=== PATIENT | female | born 1935 | race Caucasian/White ===

== ENCOUNTER 2017-04-20 15:30 | Emergency (ER) | payer MEDICARE, BC | END 2017-04-20 16:44 | disposition left against medical advice (07) | LOC: UCEAST 15:30 | DX: R21 Rash and other nonspecific skin eruption (principal); Z53.21 Procedure and treatment not carried out due to patient leaving prior to being seen by health care provider ==

== ENCOUNTER 2017-04-21 17:55 | Inpatient (IN) | payer MEDICARE, BC ==
[2017-04-21 20:11] LABS: Urine Appearance Turbid; Urine Blood 1+ (Negative); Urine Color Amber; Urine Ketones Negative (Negative); Urine Protein 1+(30 mg/dL) (Negative); Urine Specific Gravity 1.009 (1.010-1.030); Urine Urobilinogen Negative (Negative)
--- NOTE | 2017-04-21 20:28 | RAD ---
HISTORY: Weakness COMPARISONS: October 06, 2014 VIEWS: 1: frontal portable view of the chest at 8:20 PM FINDINGS: LINES AND TUBES: None. CARDIOMEDIASTINAL SILHOUETTE: The cardiac silhouette is enlarged. The cardiomediastinal silhouette is otherwise normal for portable technique. PLEURA: The costophrenic angles are sharp. No pleural abnormalities are noted. LUNG PARENCHYMA: There is a diffuse reticular pattern with indistinct pulmonary vessels. ABDOMEN: The upper abdomen is clear. There is no subphrenic gas. BONES AND SOFT TISSUES: No bone or soft tissue abnormalities are noted. IMPRESSION: CARDIOMEGALY WITH PULMONARY INTERSTITIAL EDEMA.
[2017-04-21 20:36] LABS: EGFR Non-African American 44.6 (>60)
[2017-04-21 20:48] LABS: ABS Basophils 0 10^3/ul (0-0.2); ABS Eosinophils 0 10^3/ul (0-0.6); ABS Lymphocytes 0.4 10^3/ul (1.0-4.8); ABS Monocytes 0.5 10^3/ul (0-0.8); ABS Neutrophils 4.9 10^3/ul (1.5-7.7); ABS Nucleated RBC 0 10^3/ul; Eosinophil % 0.2 % (0-6); Hematocrit 39 % (35-47); Hemoglobin 13.1 g/dl (12.0-16.0); Mean Corpuscular HGB Conc 34 g/dl (31-36); Mean Corpuscular Hemoglobin 32 pg (27-31); Mean Corpuscular Volume 96 fL (80-97); Mean Platelet Volume 10 um3 (7.4-10.4); Nucleated Red Blood Cells % 0.1; Platelet Count 81 10^3/ul (150-450); Red Blood Count 4.06 10^6/ul (4.0-5.4); Red Cell Distribution Width 15 % (10.5-15); White Blood Count 5.8 10^3/ul (3.5-10.8)
[2017-04-21] MEDS ORDERED: NS 0.9% 1000 ML* 1,000 ML IV ONE (20:57)
[2017-04-21] MEDS ORDERED: Ciprofloxacin 400MG IVPREMIX(* 400 MG/200 ML BAG IVPB ONE (20:58)
[2017-04-21] MEDS ORDERED: Albuterol 2.5 MG/3 ML NEB.SOL* (0.083%) INH PRN (23:34)
[2017-04-21] MEDS ORDERED: Ondansetron INJ* 2 MG/ML VIAL IV PRN (23:34)
[2017-04-21] MEDS ORDERED: CMCS:Melatonin (NF) 3 MG TAB PO PRN (23:34)
--- NOTE | 2017-04-21 23:36 | HP ---
H&P (Free Text) History and Physical: PCP: Carolina Borges MD Date/Time: 04/21/2017 0027 CC: generalized weakness HPI: Mrs Mcghee is a 81YO super morbidly obese female poor historian HX of DM2, CHF, moderate pulmonary HTN, mod/sev TR, HTN, hypothyroidism, asthma on 2L oxygen nightly & PRN, & EFRA compliant with CPAP reports onset of gradually progressive generalized weakness over the last 2-3 days associated with F/C, urinary urgency & frequency without dysuria, light-headedness, nausea without vomiting, & mild rolf-umbilical abdominal ache. She denies sweats, diarrhea, chest pain, SOB, palpitations, changes in bowels, bloody/black stools, or other issues. Tonight her children assisted her to the bathroom. When returning to bed her legs "gave out" and she slid down the wall. There was no head impact or LOC. EMS was called and transport [place] [facility] ED evaluation is notable for UA positive for UTI & an elevated troponin. PMedHx DM2 CHF moderate pulmonary HTN mod/sev TR HTN hypothyroidism asthma on 2L oxygen nightly & PRN EFRA compliant with CPAP super morbid obesity diverticulosis osteoporosis glaucoma gout Ambulatory Orders Nursing to reconcile. Levothyroxine Sodium [Levothroid] 112 mcg PO DAILY 11/16/11 Zafirlukast TAB* [Accolate TAB*] 20 mg PO BID 11/16/11 Acetaminophen TAB* [Tylenol TAB*] 325 mg PO Q4H PRN 10/06/14 Brimonidine P 0.1%(NF) [Alphagan P 0.1% (NF)] 1 drop BOTH EYES BID 10/06/14 Calcium Carbonate/Vitamin D3 [Calcium 600-Vit D3 800 Tablet] 1 tab PO DAILY Diclofenac 1% GEL (NF) [Voltaren 1% GEL (NF)] 2 gm TOPICAL BID PRN 10/06/14 Latanoprost 0.005% OPTH (NF) [Xalatan 0.005% OPTH*] 1 drop BOTH EYES BEDTIME Lisinopril TAB* [Prinivil TAB 5 MG*] 5 mg PO DAILY 10/06/14 Metoprolol Tartrate TAB* [Lopressor TAB*] 50 mg PO BID 10/06/14 Potassium Citrate (NF) [Urocit-K 10 (NF)] 10 meq PO DAILY 10/06/14 Torsemide TAB* [Demadex 20 MG*] 10 mg PO DAILY 10/06/14 Albuterol/Ipratropium RESP(NF) [Combivent Respimat(NF)] 1 aer IN QID 01/11/17 Allopurinol TAB* [Zyloprim 300 MG TAB*] 300 mg PO DAILY 01/11/17 Beclomethasone 80 MCG MDI(NF) [Qvar 80 MCG MDI(NF)] 2 puff INH BID 01/11/17 Cholecalciferol (Vitamin D3) [D3 2000] 1,000 unit PO DAILY 01/11/17 Cyanocobalamin (Vitamin B-12) [B12] 500 mcg PO DAILY 01/11/17 Desloratadine [Desloratadine Odt] 5 mg PO DAILY 01/11/17 EPINEPHrine [Epipen 2-Oswaldo] 0.3 mg IM ONCE PRN 01/11/17 [place] HCl 1 % OP DAILY 01/11/17 Polyethylene Glycol 3350 [Polyethylene Glycol 3350] 1 gra PO DAILY 01/11/17 diPHENhydraMINE PO* [Benadryl PO 25 MG TAB*] 25 mg PO DAILY PRN 01/11/17 Docusate Sodium [Stool Softener] 100 mg PO BID 01/25/17 Allergies prednisone Allergy (Intermediate, Verified 04/21/17 23:32) Swelling Of Face,Lips,& Throat Adhesive Tape Allergy (Mild, Verified 04/21/17 23:32) Rash And Itching [place]-Wbs-Bfa Reductase Inhibitor Allergy (Mild, Verified 04/21/17 23:32) Rash And Itching amoxicillin Adverse Reaction (Mild, Verified 04/21/17 23:32) Nausea And Vomiting citalopram Adverse Reaction (Mild, Verified 04/21/17 23:32) Jittery omalizumab Adverse Reaction (Mild, Verified 04/21/17 23:32) Jittery adhesive tape Allergy (Mild, Uncoded 04/21/17 23:32) Rash And Itching PSurgHx R TKA cholecystectomy L lumpectomy x2 (benign) SocHx: quit smoking 25 years ago w/ ~20PYHX, rare alcohol, no recreational drugs ; , lives alone; full code status FamHx: adopted, biological parents were known to be alcoholic ROS: as above, otherwise reviewed and all were negative vitals: Vital Signs Temp 37.1 C 04/21/17 22:29 Pulse 91 04/21/17 23:00 Resp 20 04/21/17 23:00 BP 114/48 04/21/17 22:30 Pulse Ox 92 04/21/17 23:00 Intake & Output 04/21/17 04/21/17 04/22/17 11:59 23:59 11:59 Intake Total 1200 Balance 1200 Weight 146.057 kg Intake: IV Fluids 1200 Constitutional: NAD, normally developed, super morbidly obese elderly white female HEENM: atraumatic; sclera/conjunctiva: anicteric/clear; hearing: mild/ moderately hard of hearing; oropharynx: clear, mucosa moist Neck: soft tissue: no nuchal rigidity; thyroid: normal Pulmonary: clear to auscultation bilaterally, good aeration, no accessory muscle use CV: RR/RR, normal S1S2, no carotid bruit, no jugular venous distention, 2+ B DP/ PT, no edema Abdominal: soft, non-distended, minimal diffuse tenderness, no rebound/guarding/ rigidity, normoactive bowel sounds, no hepatosplenomegaly or masses, no costovertebral angle tenderness Musculoskeletal: general: grossly intact w/o tenderness to palpation Integumental: scattered areas of erythematous hyperkeratosis BLE consistent with exzema vs psoriasis Psychiatric orientation: AA&O to PPS affect: calm mood: cooperative eye contact: good content: reliable, but patient clearly lacks good understanding of her medical issues responses: timely insight: poor to fair Testing: Lab Results 04/21/17 04/21/17 04/21/17 Range/Units 19:48 20:11 20:11 WBC 5.8 (3.5-10.8) 10^3/ul RBC 4.06 (4.0-5.4) 10^6/ul Hgb 13.1 (12.0-16.0) g/dl Hct 39 (35-47) % MCV 96 (80-97) fL MCH 32 H (27-31) pg MCHC 34 (31-36) g/dl RDW 15 (10.5-15) % Plt Count 81 L (150-450) 10^3/ul MPV 10 (7.4-10.4) um3 Neut % (Auto) 84.4 H (38-83) % Lymph % (Auto) 7.0 L (25-47) % [place] % (Auto) 8.2 H (0-7) % Eos % (Auto) 0.2 (0-6) % Baso % (Auto) 0.2 (0-2) % Absolute Neuts (auto) 4.9 (1.5-7.7) 10^3/ul Absolute Lymphs (auto) 0.4 L (1.0-4.8) 10^3/ul Absolute Monos (auto) 0.5 (0-0.8) 10^3/ul Absolute Eos (auto) 0 (0-0.6) 10^3/ul Absolute Basos (auto) 0 (0-0.2) 10^3/ul Absolute Nucleated RBC 0 10^3/ul Nucleated RBC % 0.1 Sodium 132 L (133-145) mmol/L Potassium 4.2 (3.5-5.0) mmol/L Chloride 98 L (101-111) mmol/L Carbon Dioxide 25 (22-32) mmol/L Anion Gap 9 (2-11) mmol/L BUN 22 (6-24) mg/dL Creatinine 1.17 H (0.51-0.95) mg/dL Est GFR ( Amer) 57.4 (>60) Est GFR (Non-Af Amer) 44.6 (>60) BUN/Creatinine Ratio 18.8 (8-20) Glucose 153 H (70-100) mg/dL Lactic Acid (0.5-2.0) mmol/L Calcium 9.4 (8.6-10.3) mg/dL Magnesium 1.7 L (1.9-2.7) mg/dL Total Bilirubin 1.20 H (0.2-1.0) mg/dL AST 24 (13-39) U/L ALT 6 L (7-52) U/L Alkaline Phosphatase 62 (34-104) U/L Troponin I 0.07 H* (<0.04) ng/mL C-Reactive Protein 64.85 H (< 5.00) mg/L Total Protein 6.6 (6.4-8.9) g/dL Albumin 3.2 (3.2-5.2) g/dL Globulin 3.4 (2-4) g/dL Albumin/Globulin Ratio 0.9 L (1-3) TSH 0.31 L (0.34-5.60) mcIU/mL Urine Color Lillie Urine Appearance Turbid Urine pH 6.0 (5-9) Ur Specific [place] 1.009 L (1.010-1.030) Urine Protein 1+(30 mg/dl) A (Negative) Urine Ketones Negative (Negative) Urine Blood 1+ A (Negative) Urine Nitrate Negative (Negative) Urine Bilirubin Negative (Negative) Urine Urobilinogen Negative (Negative) Ur Leukocyte Esterase 3+ A (Negative) Urine WBC (Auto) 3+(>20/hpf) A (Absent) Urine RBC (Auto) 3+(>10/hpf) A (Absent) Urine Bacteria 1+ A (Absent) Urine Glucose Negative (Negative) 04/21/17 Range/Units 20:11 WBC (3.5-10.8) 10^3/ul RBC (4.0-5.4) 10^6/ul Hgb (12.0-16.0) g/dl Hct (35-47) % MCV (80-97) fL MCH (27-31) pg MCHC (31-36) g/dl RDW (10.5-15) % Plt Count (150-450) 10^3/ul MPV (7.4-10.4) um3 Neut % (Auto) (38-83) % Lymph % (Auto) (25-47) % [place] % (Auto) (0-7) % Eos % (Auto) (0-6) % Baso % (Auto) (0-2) % Absolute Neuts (auto) (1.5-7.7) 10^3/ul Absolute Lymphs (auto) (1.0-4.8) 10^3/ul Absolute Monos (auto) (0-0.8) 10^3/ul Absolute Eos (auto) (0-0.6) 10^3/ul Absolute Basos (auto) (0-0.2) 10^3/ul Absolute Nucleated RBC 10^3/ul Nucleated RBC % Sodium (133-145) mmol/L Potassium (3.5-5.0) mmol/L Chloride (101-111) mmol/L Carbon Dioxide (22-32) mmol/L Anion Gap (2-11) mmol/L BUN (6-24) mg/dL Creatinine (0.51-0.95) mg/dL Est GFR ( Amer) (>60) Est GFR (Non-Af Amer) (>60) BUN/Creatinine Ratio (8-20) Glucose (70-100) mg/dL Lactic Acid 1.5 (0.5-2.0) mmol/L Calcium (8.6-10.3) mg/dL Magnesium (1.9-2.7) mg/dL Total Bilirubin (0.2-1.0) mg/dL AST (13-39) U/L ALT (7-52) U/L Alkaline Phosphatase (34-104) U/L Troponin I (<0.04) ng/mL C-Reactive Protein (< 5.00) mg/L Total Protein (6.4-8.9) g/dL Albumin (3.2-5.2) g/dL Globulin (2-4) g/dL Albumin/Globulin Ratio (1-3) TSH (0.34-5.60) mcIU/mL Urine Color Urine Appearance Urine pH (5-9) Ur Specific [place] (1.010-1.030) Urine Protein (Negative) Urine Ketones (Negative) Urine Blood (Negative) Urine Nitrate (Negative) Urine Bilirubin (Negative) Urine Urobilinogen (Negative) Ur Leukocyte Esterase (Negative) Urine WBC (Auto) (Absent) Urine RBC (Auto) (Absent) Urine Bacteria (Absent) Urine Glucose (Negative) ECG, personally reviewed: sinus rhythm rate 81 with frequent PACs followed by junctional escapes; no ischemia CXR, personally reviewed: IMPRESSION: CARDIOMEGALY WITH PULMONARY INTERSTITIAL EDEMA. Impression: 81F presenting with generalized weakness found to have a UTI and elevated troponin DIAGNOSIS & PLAN Primary UTI w/ 2nd generalized weakness : continue ciprofloxacin IV initiated in ED : IVFs, cautiously given HX of CHF & currently stable vitals : urine CX : PT evaluation : supportive care elevated troponin : suspect demand related : telemetry & trend pre-syncope : likely 2nd UTI : update ECHO : telemetry as above Secondary DM2 : update A1c : consistent carb diet : ACHS glucometry : correctional insulin HTN : review meds once reconciled asthma : continue 2L oxygen nightly & PRN : albuterol nebs PRN EFRA : continue CPAP super morbid obesity : no acute issues hypothyroidism : review meds once reconciled glaucoma : review meds once reconciled CHF : strict I&Os : daily weights : update ECHO as above gout : continue allopurinol Admission Rational: observation for initiation of ABX for UTI, pre-syncope work up, & elevated troponin DVTp: SCDs & heparin SQ Code Status: full HCP: children
[2017-04-21] MEDS ORDERED: NS 0.9% 1000 ML* 1,000 ML IV SCH (23:45)
[2017-04-22 00:24] LABS: EGFR Non-African American 44.6 (>60)
[2017-04-22 00:25] LABS: INR 1.12 (0.77-1.02)
[2017-04-22] MEDS: Acetaminophen TAB* 325 MG PO PRN ×3 (00:25→19:14)
[2017-04-22] MEDS: Heparin VIAL(*) 5000 UNITS/ML VIAL (FIVE THOUSAND) SUBCUT SCH ×2 (06:14→15:06)
[2017-04-22 06:21] LABS: EGFR Non-African American 47.4 (>60)
[2017-04-22 06:40] LABS: ABS Basophils 0 10^3/ul (0-0.2); ABS Eosinophils 0 10^3/ul (0-0.6); ABS Lymphocytes 0.9 10^3/ul (1.0-4.8); ABS Monocytes 0.7 10^3/ul (0-0.8); ABS Neutrophils 2.4 10^3/ul (1.5-7.7); ABS Nucleated RBC 0 10^3/ul; Hematocrit 37 % (35-47); Hemoglobin 12.1 g/dl (12.0-16.0); Mean Corpuscular HGB Conc 33 g/dl (31-36); Mean Corpuscular Hemoglobin 32 pg (27-31); Mean Corpuscular Volume 97 fL (80-97); Mean Platelet Volume 10 um3 (7.4-10.4); Platelet Count 71 10^3/ul (150-450); Red Blood Count 3.78 10^6/ul (4.0-5.4); Red Cell Distribution Width 15 % (10.5-15); White Blood Count 4.1 10^3/ul (3.5-10.8)
[2017-04-22 07:28] LABS: Monocytes % 15 % (0-7)
[2017-04-22] MEDS ORDERED: Magnesium Sulfate 2 GM IV* 2 GM/50 ML BAG IVPB ONE (08:36)
[2017-04-22] MEDS ORDERED: Perflutren Lipid Microsphere* 3 ML VIAL ONE (08:41)
[2017-04-22] MEDS: Insulin LISPRO* 1 UNITS UNIT SUBCUT SCH ×4 (10:09→21:28)
[2017-04-22] MEDS: Triamcinolone 0.5% OINT * 15 GM TUBE TOPICAL SCH ×2 (10:19→22:06)
[2017-04-22] MEDS: Docusate CAP* 100 MG PO SCH ×2 (10:20→22:06)
[2017-04-22] MEDS: Nystatin TOP POWDER* 15 GM BTL TOPICAL SCH ×3 (10:20→22:06)
[2017-04-22] MEDS: Ciprofloxacin IV(*) 400 MG in D5W 250 ML BAG* 160 ML IVPB SCH ×2 (10:20→22:06)
--- NOTE | 2017-04-22 11:39 | ECHO ---
Patient: BECKA BRASWELL [facility] Rec#: [id number] : 1935 Date: 04/22/2017 Age: 81y Weight: kg / NaN lbs Sex: F Room#: 452 Admit Date#: 04/21/2017 Type: Inpatient Referring: Samuel Oreilly MD Reading: Jose Fuchs MD Barbering Teacher: Shirley Nelson RN RDCS CC: Tri Borges MD Transthoracic Echocardiogram Indication: Pre-syncope, elevated troponin levels BP: 100/46 HR: 87 Rhythm: A-Fib Findings History: Super morbid obesity, DM, HTN, CHF, PHTN, moderate-severe TR, hypothyroidism, asthma, EFRA, former smoker Technical Comments: The study is technically limited due to poor acoustic windows. The study is technically limited due to patient body habitus. The study is technically limited due to the patient's smoking history. The study was technically limited due to the patient's inability to lay in the left lateral decubitus position. Completed at 1000. Left Ventricle: The left ventricular chamber size is normal. There is no left ventricular hypertrophy. Global left ventricular wall motion and contractility are within normal limits. There is normal left ventricular systolic function. The estimated ejection fraction is 60-65%. There is septal flattening of the interventricular septum consistent with right ventricular volume or pressure overload. The assessment of diastolic function is non-diagnostic. Left Atrium: The left atrium is mildly dilated. Right Ventricle: The right ventricle is mild to moderately dilated. The right ventricular global systolic function is mildly reduced. Right Atrium: The right atrium is mild to moderately dilated. Aortic Valve: The aortic valve structure is not well visualized. There is no evidence of aortic regurgitation. There is no evidence of aortic stenosis. Mitral Valve: Mild mitral annular calcification present. The mitral valve leaflets are mildly thickened. There is mild to moderate mitral regurgitation. There is no evidence of mitral stenosis. Tricuspid Valve: The tricuspid valve structure is not well visualized. There is mild to moderate tricuspid regurgitation. There is evidence of moderate to severe pulmonary hypertension. There is no tricuspid stenosis. Pulmonic Valve: The pulmonic valve structure is not well visualized. Pericardium: There is no significant pericardial effusion. A pericardial fat pad is visualized. Aorta: The ascending aorta is not well visualized. The aortic arch is not well visualized. There is no dilation of the aortic root. Pulmonary Artery: The main pulmonary artery is not well visualized. Venous: The venous system is not well visualized. The inferior vena cava is not visualized. Contrast: Definity was used to optimize study. A total of 6 ml of diluted Definity was given IV. Summary: There are no significant changes when compared to the previous study done on 08/01/10 Conclusions Global left ventricular wall motion and contractility are within normal limits. There is normal left ventricular systolic function. The estimated ejection fraction is 60-65%. There is septal flattening of the interventricular septum consistent with right ventricular volume or pressure overload. The right ventricular global systolic function is mildly reduced. There is no evidence of aortic stenosis. There is mild to moderate mitral regurgitation. There is mild to moderate tricuspid regurgitation. There is evidence of moderate to severe pulmonary hypertension. There is no significant pericardial effusion. There are no significant changes when compared to the previous study done on 08/01/10 Measurements Name Value Normal Range RVDdMajor (2D) 4.6 cm (2.2 - 4.4) RAd ISD 4CH 6 cm (3.4 - 4.9) RA (A4C)W 4.4 cm (2.9 - 4.6) IVSd (2D) 1 cm (0.6 - 1) LVPWd (2D) 1 cm (0.6 - 1) LVIDd (2D) 4.4 cm (3.6 - 5.4) Ao root diameter (2D) 2.6 cm (2.1 - 3.5) LA dimension (AP) 2D 3.9 cm (2.3 - 3.8) LAd ISD 4CH 5.6 cm (2.9 - 5.3) LA ISD 4CH W 4.6 cm (2.5 - 4.5) Name Value Normal Range LA ESV SP 4CH (A/L) 59 ml - LA ESV SP 2CH (A/L) 63 ml - LA ESV BP (A/L) 62 ml - LA ESV BP (A/L) index 26 ml/m2 - LA ESV SP 4CH (MOD) 55 ml - LA ESV SP 2CH (MOD) 60 ml - Name Value Normal Range MV E-wave Vmax 1.5 m/sec - MV deceleration time 246 msec - LV septal e' Vmax 0.09 m/sec - LV lateral e' Vmax 0.1 m/sec - LV E:e' septal ratio 17 ratio - LV E:e' lateral ratio 15 ratio - Name Value Normal Range AV Vmax 1.6 m/sec - AV VTI 34 cm - AV peak gradient 10.8 mmHg - AV mean gradient 6.7 mmHg - LVOT Vmax 1.3 m/sec - LVOT VTI 27.1 cm - LVOT peak gradient 7 mmHg - LVOT mean gradient 3.6 mmHg - Name Value Normal Range MV Vmax 1.6 m/sec - MV VTI 30.7 cm - MV peak gradient 10 mmHg - MV mean gradient 3.6 mmHg - MV PHT 80 msec - MVA (PHT) 2.8 cm2 - Name Value Normal Range TR Vmax 3.4 m/sec - TR peak gradient 46 mmHg - RAP 8 mmHg - RVSP 54 mmHg - Name Value Normal Range PV Vmax 1.2 m/sec -
--- NOTE | 2017-04-22 12:26 | ED ---
Angelita Sauer Jason, scribed for Sandeep Ibarra MD on 04/21/17 at 1938 . Complex/Multi-Sys Presentation - HPI Summary HPI Summary: This patient is a 81 year old F BIBA to [facility] accompanied by family with a chief complaint of general weakness since 3 days ago. The patient states today she was unable to urinate, and had cloudy urine with a terrible smell. The patient rates the pain 0/10 in severity. Symptoms aggravated by nothing. Symptoms alleviated by nothing. Patient reports congestion, sore throat, and going from feeling cold to feeling hot. Patient denies urinary pain. Patient has had her Gallbladder removed, and had a Knee replacement 10 years ago. - History Of Current Complaint Chief Complaint: EDWeakness Time Seen by Provider: 04/21/17 18:17 Hx Obtained From: Patient Onset/Duration: Lasting Days - 3 days, Still Present Timing: Constant Aggravating Factor(s): nothing Alleviating Factor(s): nothing Associated Signs And Symptoms: Positive: Other - general weakness, "cloudy and smelly urine," congestion, sore throat, and going from feeling cold to feeling hot. Patient denies urinary pain - Allergies/Home Medications Allergies/Adverse Reactions: Allergies Allergy/AdvReac Type Severity Reaction Status Date / Time prednisone Allergy Intermediate Swelling Verified 04/21/17 23:32 Of Face,Lips,& Throat Adhesive Tape Allergy Mild Rash And Verified 04/21/17 23:32 Itching Eelubly-Shf-Qvi Reductase Allergy Mild Rash And Verified 04/21/17 23:32 Inhibitor Itching amoxicillin AdvReac Mild Nausea And Verified 04/21/17 23:32 Vomiting citalopram AdvReac Mild Jittery Verified 04/21/17 23:32 omalizumab AdvReac Mild Jittery Verified 04/21/17 23:32 adhesive tape Allergy Mild Rash And Uncoded 04/21/17 23:32 Itching PMH/Surg Hx/FS Hx/Imm Hx Previously Healthy: No Endocrine/Hematology History: Reports: Hx Thyroid Disease Denies: Hx Diabetes Cardiovascular History: Reports: Hx Congestive Heart Failure, Hx Hypercholesterolemia, Hx Hypertension Respiratory History: Reports: Hx Asthma, Hx Sleep Apnea - current CPAP user History: Denies: Hx Renal Disease Musculoskeletal History: Reports: Hx Arthritis Denies: Hx Rheumatoid Arthritis, Hx Osteoporosis Sensory History: Reports: Hx Glaucoma Opthamlomology History: Reports: Hx Glaucoma - Cancer History Hx Chemotherapy: No Hx Radiation Therapy: No - Surgical History Surgery Procedure, Year, and Place: cholecystectomy. left breast biopsy. right TKR Infectious Disease History: No Infectious Disease History: Denies: History Other Infectious Disease, Traveled Outside the [place] in Last 30 Days - Family History Known Family History: Positive: Other - 2 sisters had breast cancer. Mother had stroke. - Social History Alcohol Use: None Substance Use Type: Reports: Prescribed Smoking Status (MU): Former Smoker Review of Systems Positive: Other - going from feeling cold to feeling hot" Positive: Sore Throat, Other - nasal congestion Positive: other - unable to urinate, and had cloudy urine with a terrible smell. . Negative: pain All Other Systems Reviewed And Are Negative: Yes Physical Exam - Summary Physical Exam Summary: Appearance: The patient is morbidly obese and in no acute distress and in no acute pain. Skin: The skin is warm and dry and skin color reflects adequate perfusion. HEENT: ~The head is normocephalic and atraumatic. The pupils are equal and reactive. The conjunctivae are clear and without drainage. ~Nares are patent and without drainage. Mouth reveals moist mucous membranes and the throat is without erythema and exudate. The external ears are intact. The ear canals are patent and without drainage. The tympanic membranes are intact. Neck: the neck is supple with full range of motion and non-tender. There are no carotid bruits. ~There is no neck vein distension. Respiratory: Chest is non-tender. ~Lungs are clear to auscultation and breath sounds are symmetrical and equal. Cardiovascular: Heart is regular rate and rhythm. ~There is no murmur or rub auscultated. ~~There is no peripheral edema and pulses are symmetrical and equal. Abdomen: The abdomen is soft and non-tender. ~There are normal bowel sounds heard in all four quadrants and there is no organomegaly palpated. Musculoskeletal: There is no back tenderness noted. ~Extremities are non-tender with full range of motion. ~There is good capillary refill. There is no peripheral edema or calf tenderness elicited. Bruises on lower extremities. Neurological: Patient is alert and oriented to person, place and time. ~The patient has symmetrical motor strength in all four extremities. ~Cranial nerves are grossly intact. Deep tendon reflexes are symmetrical and equal in all four extremities. Psychiatric: The patient has an appropriate affect and does not exhibit any anxiety or depression. Triage Information Reviewed: Yes Vital Signs On Initial Exam: Initial Vitals Temp Pulse Resp BP Pulse Ox 100.0 F 98 19 140/43 93 04/21/17 17:57 04/21/17 17:57 04/21/17 17:57 04/21/17 17:57 04/21/17 17:57 Vital Signs Reviewed: Yes Diagnostics - Vital Signs Vital Signs Temp Pulse Resp BP Pulse Ox 04/21/17 19:13 76 17 126/53 04/21/17 18:35 87 19 118/45 83 04/21/17 17:57 100.0 F 98 19 140/43 93 - Laboratory Lab Results: Lab Results 04/21/17 04/21/17 04/21/17 Range/Units 19:48 20:11 20:11 WBC 5.8 (3.5-10.8) 10^3/ul RBC 4.06 (4.0-5.4) 10^6/ul Hgb 13.1 (12.0-16.0) g/dl Hct 39 (35-47) % MCV 96 (80-97) fL MCH 32 H (27-31) pg MCHC 34 (31-36) g/dl RDW 15 (10.5-15) % Plt Count 81 L (150-450) 10^3/ul MPV 10 (7.4-10.4) um3 Neut % (Auto) 84.4 H (38-83) % Lymph % (Auto) 7.0 L (25-47) % Orange % (Auto) 8.2 H (0-7) % Eos % (Auto) 0.2 (0-6) % Baso % (Auto) 0.2 (0-2) % Absolute Neuts (auto) 4.9 (1.5-7.7) 10^3/ul Absolute Lymphs (auto) 0.4 L (1.0-4.8) 10^3/ul Absolute Monos (auto) 0.5 (0-0.8) 10^3/ul Absolute Eos (auto) 0 (0-0.6) 10^3/ul Absolute Basos (auto) 0 (0-0.2) 10^3/ul Absolute Nucleated RBC 0 10^3/ul Nucleated RBC % 0.1 Sodium 132 L (133-145) mmol/L Potassium 4.2 (3.5-5.0) mmol/L Chloride 98 L (101-111) mmol/L Carbon Dioxide 25 (22-32) mmol/L Anion Gap 9 (2-11) mmol/L BUN 22 (6-24) mg/dL Creatinine 1.17 H (0.51-0.95) mg/dL Est GFR ( Amer) 57.4 (>60) Est GFR (Non-Af Amer) 44.6 (>60) BUN/Creatinine Ratio 18.8 (8-20) Glucose 153 H (70-100) mg/dL Hemoglobin A1c (4.0-5.6) % Lactic Acid (0.5-2.0) mmol/L Calcium 9.4 (8.6-10.3) mg/dL Magnesium 1.7 L (1.9-2.7) mg/dL Total Bilirubin 1.20 H (0.2-1.0) mg/dL AST 24 (13-39) U/L ALT 6 L (7-52) U/L Alkaline Phosphatase 62 (34-104) U/L Troponin I 0.07 H* (<0.04) ng/mL C-Reactive Protein 64.85 H (< 5.00) mg/L Total Protein 6.6 (6.4-8.9) g/dL Albumin 3.2 (3.2-5.2) g/dL Globulin 3.4 (2-4) g/dL Albumin/Globulin Ratio 0.9 L (1-3) TSH 0.31 L (0.34-5.60) mcIU/mL Urine Color Lillie Urine Appearance Turbid Urine pH 6.0 (5-9) Ur Specific [place] 1.009 L (1.010-1.030) Urine Protein 1+(30 mg/dl) A (Negative) Urine Ketones Negative (Negative) Urine Blood 1+ A (Negative) Urine Nitrate Negative (Negative) Urine Bilirubin Negative (Negative) Urine Urobilinogen Negative (Negative) Ur Leukocyte Esterase 3+ A (Negative) Urine WBC (Auto) 3+(>20/hpf) A (Absent) Urine RBC (Auto) 3+(>10/hpf) A (Absent) Urine Bacteria 1+ A (Absent) Urine Glucose Negative (Negative) 04/21/17 04/21/17 Range/Units 20:11 20:11 WBC (3.5-10.8) 10^3/ul RBC (4.0-5.4) 10^6/ul Hgb (12.0-16.0) g/dl Hct (35-47) % MCV (80-97) fL MCH (27-31) pg MCHC (31-36) g/dl RDW (10.5-15) % Plt Count (150-450) 10^3/ul MPV (7.4-10.4) um3 Neut % (Auto) (38-83) % Lymph % (Auto) (25-47) % Orange % (Auto) (0-7) % Eos % (Auto) (0-6) % Baso % (Auto) (0-2) % Absolute Neuts (auto) (1.5-7.7) 10^3/ul Absolute Lymphs (auto) (1.0-4.8) 10^3/ul Absolute Monos (auto) (0-0.8) 10^3/ul Absolute Eos (auto) (0-0.6) 10^3/ul Absolute Basos (auto) (0-0.2) 10^3/ul Absolute Nucleated RBC 10^3/ul Nucleated RBC % Sodium (133-145) mmol/L Potassium (3.5-5.0) mmol/L Chloride (101-111) mmol/L Carbon Dioxide (22-32) mmol/L Anion Gap (2-11) mmol/L BUN (6-24) mg/dL Creatinine (0.51-0.95) mg/dL Est GFR ( Amer) (>60) Est GFR (Non-Af Amer) (>60) BUN/Creatinine Ratio (8-20) Glucose (70-100) mg/dL Hemoglobin A1c 6.5 H (4.0-5.6) % Lactic Acid 1.5 (0.5-2.0) mmol/L Calcium (8.6-10.3) mg/dL Magnesium (1.9-2.7) mg/dL Total Bilirubin (0.2-1.0) mg/dL AST (13-39) U/L ALT (7-52) U/L Alkaline Phosphatase (34-104) U/L Troponin I (<0.04) ng/mL C-Reactive Protein (< 5.00) mg/L Total Protein (6.4-8.9) g/dL Albumin (3.2-5.2) g/dL Globulin (2-4) g/dL Albumin/Globulin Ratio (1-3) TSH (0.34-5.60) mcIU/mL Urine Color Urine Appearance Urine pH (5-9) Ur Specific [place] (1.010-1.030) Urine Protein (Negative) Urine Ketones (Negative) Urine Blood (Negative) Urine Nitrate (Negative) Urine Bilirubin (Negative) Urine Urobilinogen (Negative) Ur Leukocyte Esterase (Negative) Urine WBC (Auto) (Absent) Urine RBC (Auto) (Absent) Urine Bacteria (Absent) Urine Glucose (Negative) Result Diagrams: 04/22/17 05:51 04/22/17 05:51 Lab Statement: Any lab studies that have been ordered have been reviewed, and results considered in the medical decision making process. - Radiology cxr Radiology Interpretation Completed By: Radiologist - CARDIOMEGALY WITH PULMONARY INTERSTITIAL EDEMA. ED physician has reviewed this radiology report. - EKG 1952 Cardiac Rate: NL EKG Rhythm: Sinus Rhythm - 81 ST Segment: Non-Specific - PSVCs Ectopy: None Complex Multi-Symp Course/Dx Course Of Treatment: Ms. Mcghee presents with the concern that she is too weak to take care of herself at home (she lives alone). She has been having dark, malodorous urine for a couple days with chills and sweats. She apparently slid down to the floor at one point. Her BMI is over 50 and her activity is limited. She was found to have a UTI and was given IV NS and Cipro and I asked the hospitalist service to evaluate her for admission. - Diagnoses Provider Diagnoses: UTI (urinary tract infection), Weakness - Physician Notifications Discussed Care Of Patient With: Zora Shelbi - admitted by hospitalist Instructed by Provider To: Admit As Inpatient Discharge - Discharge Plan Condition: Good Disposition: ADMITTED TO [facility] The documentation as recorded by the Angelita sears Jason accurately reflects the service I personally performed and the decisions made by me, Sandeep Ibarra MD.
[2017-04-22] MEDS ORDERED: Magnesium Sulfate 2 GM IV* 2 GM/50 ML BAG ONE (13:06)
[2017-04-22] MEDS ORDERED: Senna TAB PO PRN (13:16)
[2017-04-22] MEDS ORDERED: Polyethylene Glycol 3350* 17 GM PACKET PO PRN (13:16)
[2017-04-22] MEDS: Torsemide TAB* 20 MG PO SCH (15:07)
[2017-04-22] MEDS: Lisinopril TAB* 5 MG PO SCH (15:11)
[2017-04-22] MEDS: Potassium Chlor TAB* 10 MEQ TAB.ER PO SCH (15:11)
[2017-04-22] MEDS: Metoprolol Tartrate TAB* 50 mg PO SCH ×2 (15:12→22:06)
--- NOTE | 2017-04-22 18:21 | PN ---
Subjective Date of Service: 04/22/17 Interval History: States that she feels weak, Denies chest pain. states that shortness of breath is at her baseline, though she states that she generally does not use O2 but started wearing o2 yesterday d/t the increased shortness of breath. Denies abd pain n/v/d Family History: Unchanged from Admission Social History: Unchanged from Admission Past Medical History: Unchanged from Admission Objective Active Medications: Acetaminophen (Tylenol Tab*) 650 mg PO Q6H PRN PRN Reason: FEVER/PAIN Last Admin: 04/22/17 10:19 Dose: 650 mg Albuterol (Ventolin 2.5 Mg/3 Ml Neb.Abby*) 2.5 mg INH Q2H PRN PRN Reason: SOB/WHEEZING Apixaban (Eliquis*) 5 mg PO BID [facility] Brimonidine Tartrate (Alphagan P 0.1% (Nf)) 1 drop BOTH EYES BID [facility] Cyanocobalamin (Vitamin B12 Tab*) 500 mcg PO DAILY [facility] Docusate Sodium (Colace Cap*) 200 mg PO BID [facility] Last Admin: 04/22/17 10:20 Dose: 200 mg Ciprofloxacin 400 mg/ Dextrose 200 mls @ 200 mls/hr IVPB Q12H [facility] Last Admin: 04/22/17 10:20 Dose: 200 mls/hr Sodium Chloride (Ns 0.9% 1000 Ml*) 1,000 mls @ 50 mls/hr IV PER RATE [facility] Insulin Human Lispro (Humalog*) 0 units SUBCUT ACHS JANICE PRN Reason: Protocol Last Admin: 04/22/17 18:09 Dose: Not Given Latanoprost (Xalatan 0.005%*) 1 drop BOTH EYES BEDTIME [facility] Levothyroxine Sodium (Synthroid Tab*) 112 mcg PO 0600 [facility] Lisinopril (Prinivil Tab*) 5 mg PO DAILY [facility] Last Admin: 04/22/17 15:11 Dose: 5 mg Melatonin (Melatonin (Nf)) 3 mg PO BEDTIME PRN; Protocol PRN Reason: Sleep Last Admin: 04/22/17 00:26 Dose: 3 mg Metoprolol Tartrate (Lopressor Tab*) 50 mg PO BID [facility] Last Admin: 04/22/17 15:12 Dose: 50 mg Nystatin (Nystatin Top Powder*) 1 applic TOPICAL TID [facility] Last Admin: 04/22/17 15:17 Dose: 1 applic Ondansetron HCl (Zofran Inj*) 4 mg IV Q6H PRN PRN Reason: NAUSEA Pilocarpine HCl (Pilocarpine 1% Opth.Abby*) 1 drop BOTH EYES DAILY [facility] Polyethylene Glycol/Electrolytes (Miralax*) 17 gm PO DAILY PRN PRN Reason: CONSTIPATION Potassium Chloride (Klor Con Er Tab*) 10 meq PO DAILY [facility] Last Admin: 04/22/17 15:11 Dose: 10 meq Senna (Senokot Tab*) 1 tab PO DAILY PRN PRN Reason: CONSTIPATION Torsemide (Demadex*) 10 mg PO DAILY [facility] Last Admin: 04/22/17 15:07 Dose: 10 mg Triamcinolone Acetonide (Triamcinolone 0.5% Oint *) 1 applic TOPICAL BID [facility] Last Admin: 04/22/17 10:19 Dose: 1 applic Vital Signs - 8 hr 04/22/17 12:47 Temperature 99.5 F Pulse Rate 82 Respiratory 20 Rate Blood Pressure 150/62 (mmHg) O2 Sat by Pulse 95 Oximetry Oxygen Devices in Use Now: None, CPAP Appearance: appears comfortable resting in bed, obese Eyes: No Scleral Icterus Ears/Nose/Mouth/Throat: Clear Oropharnyx, Mucous Membranes Moist Neck: NL Appearance and Movements; NL JVP, Trachea Midline Respiratory: Symmetrical Chest Expansion and Respiratory Effort, - - diminished t/o bilat Cardiovascular: NL Sounds; No Murmurs; No JVD, No Edema, - - irregular Abdominal: NL Sounds; No Tenderness; No Distention - obese Extremities: No Edema, No Clubbing, Cyanosis Skin: No Rash or Ulcers Neurological: Alert and Oriented x 3 Nutrition: Taking PO's Result Diagrams: 04/23/17 06:15 04/23/17 06:15 Additional Lab and Data: Lab Results 04/21/17 04/21/17 04/21/17 Range/Units 19:48 20:11 20:11 WBC 5.8 (3.5-10.8) 10^3/ul RBC 4.06 (4.0-5.4) 10^6/ul Hgb 13.1 (12.0-16.0) g/dl Hct 39 (35-47) % MCV 96 (80-97) fL MCH 32 H (27-31) pg MCHC 34 (31-36) g/dl RDW 15 (10.5-15) % Plt Count 81 L (150-450) 10^3/ul MPV 10 (7.4-10.4) um3 Neut % (Auto) 84.4 H (38-83) % Lymph % (Auto) 7.0 L (25-47) % [place] % (Auto) 8.2 H (0-7) % Eos % (Auto) 0.2 (0-6) % Baso % (Auto) 0.2 (0-2) % Absolute Neuts (auto) 4.9 (1.5-7.7) 10^3/ul Absolute Lymphs (auto) 0.4 L (1.0-4.8) 10^3/ul Absolute Monos (auto) 0.5 (0-0.8) 10^3/ul Absolute Eos (auto) 0 (0-0.6) 10^3/ul Absolute Basos (auto) 0 (0-0.2) 10^3/ul Absolute Nucleated RBC 0 10^3/ul Nucleated RBC % 0.1 Sodium 132 L (133-145) mmol/L Potassium 4.2 (3.5-5.0) mmol/L Chloride 98 L (101-111) mmol/L Carbon Dioxide 25 (22-32) mmol/L Anion Gap 9 (2-11) mmol/L BUN 22 (6-24) mg/dL Creatinine 1.17 H (0.51-0.95) mg/dL Est GFR ( Amer) 57.4 (>60) Est GFR (Non-Af Amer) 44.6 (>60) BUN/Creatinine Ratio 18.8 (8-20) Glucose 153 H (70-100) mg/dL Hemoglobin A1c (4.0-5.6) % Lactic Acid (0.5-2.0) mmol/L Calcium 9.4 (8.6-10.3) mg/dL Magnesium 1.7 L (1.9-2.7) mg/dL Total Bilirubin 1.20 H (0.2-1.0) mg/dL AST 24 (13-39) U/L ALT 6 L (7-52) U/L Alkaline Phosphatase 62 (34-104) U/L Troponin I 0.07 H* (<0.04) ng/mL C-Reactive Protein 64.85 H (< 5.00) mg/L Total Protein 6.6 (6.4-8.9) g/dL Albumin 3.2 (3.2-5.2) g/dL Globulin 3.4 (2-4) g/dL Albumin/Globulin Ratio 0.9 L (1-3) TSH 0.31 L (0.34-5.60) mcIU/mL Urine Color Lillie Urine Appearance Turbid Urine pH 6.0 (5-9) Ur Specific Sharon 1.009 L (1.010-1.030) Urine Protein 1+(30 mg/dl) A (Negative) Urine Ketones Negative (Negative) Urine Blood 1+ A (Negative) Urine Nitrate Negative (Negative) Urine Bilirubin Negative (Negative) Urine Urobilinogen Negative (Negative) Ur Leukocyte Esterase 3+ A (Negative) Urine WBC (Auto) 3+(>20/hpf) A (Absent) Urine RBC (Auto) 3+(>10/hpf) A (Absent) Urine Bacteria 1+ A (Absent) Urine Glucose Negative (Negative) 04/21/17 04/21/17 Range/Units 20:11 20:11 WBC (3.5-10.8) 10^3/ul RBC (4.0-5.4) 10^6/ul Hgb (12.0-16.0) g/dl Hct (35-47) % MCV (80-97) fL MCH (27-31) pg MCHC (31-36) g/dl RDW (10.5-15) % Plt Count (150-450) 10^3/ul MPV (7.4-10.4) um3 Neut % (Auto) (38-83) % Lymph % (Auto) (25-47) % [place] % (Auto) (0-7) % Eos % (Auto) (0-6) % Baso % (Auto) (0-2) % Absolute Neuts (auto) (1.5-7.7) 10^3/ul Absolute Lymphs (auto) (1.0-4.8) 10^3/ul Absolute Monos (auto) (0-0.8) 10^3/ul Absolute Eos (auto) (0-0.6) 10^3/ul Absolute Basos (auto) (0-0.2) 10^3/ul Absolute Nucleated RBC 10^3/ul Nucleated RBC % Sodium (133-145) mmol/L Potassium (3.5-5.0) mmol/L Chloride (101-111) mmol/L Carbon Dioxide (22-32) mmol/L Anion Gap (2-11) mmol/L BUN (6-24) mg/dL Creatinine (0.51-0.95) mg/dL Est GFR ( Amer) (>60) Est GFR (Non-Af Amer) (>60) BUN/Creatinine Ratio (8-20) Glucose (70-100) mg/dL Hemoglobin A1c 6.5 H (4.0-5.6) % Lactic Acid 1.5 (0.5-2.0) mmol/L Calcium (8.6-10.3) mg/dL Magnesium (1.9-2.7) mg/dL Total Bilirubin (0.2-1.0) mg/dL AST (13-39) U/L ALT (7-52) U/L Alkaline Phosphatase (34-104) U/L Troponin I (<0.04) ng/mL C-Reactive Protein (< 5.00) mg/L Total Protein (6.4-8.9) g/dL Albumin (3.2-5.2) g/dL Globulin (2-4) g/dL Albumin/Globulin Ratio (1-3) TSH (0.34-5.60) mcIU/mL Urine Color Urine Appearance Urine pH (5-9) Ur Specific Sharon (1.010-1.030) Urine Protein (Negative) Urine Ketones (Negative) Urine Blood (Negative) Urine Nitrate (Negative) Urine Bilirubin (Negative) Urine Urobilinogen (Negative) Ur Leukocyte Esterase (Negative) Urine WBC (Auto) (Absent) Urine RBC (Auto) (Absent) Urine Bacteria (Absent) Urine Glucose (Negative) Assess/Plan/Problems-Billing Assessment: Ms. Mcghee is a 81 y.o female with a hx of DM, CHF, EFRA, HTN, hypothyroid that presented to the emergency room after a fall , increased weakness and c/o increased frequency and urgency with urination. Found to have a bladder infection. - Patient Problems (1) UTI (urinary tract infection) Current Visit: Yes Status: Acute Comment: urine culture positive for Kleb. pneumoniea Will stop Cipro~ change to keflex (2) Diabetes Current Visit: Yes Status: Acute Code(s): E11.9 - TYPE 2 DIABETES MELLITUS WITHOUT COMPLICATIONS SNOMED Code(s): 67435249 Comment: finger sticks AC and HS Lispro sliding scale (3) Hypertension Current Visit: Yes Status: Acute Code(s): I10 - ESSENTIAL (PRIMARY) HYPERTENSION SNOMED Code(s): 89761383 Comment: stable Continue home medications (4) Hypothyroid Current Visit: Yes Status: Acute Code(s): E03.9 - HYPOTHYROIDISM, UNSPECIFIED SNOMED Code(s): 03642267 Comment: TSH 0.31 Continue home medication (5) New onset a-fib Current Visit: Yes Status: Acute Code(s): I48.91 - UNSPECIFIED ATRIAL FIBRILLATION SNOMED Code(s): 40776305 Comment: Consult cardiology ~ Dr. Jef Goodwin2 score is 8 putting her at high risk of stroke~ discussed in lenght the risk and benefits of coumadin vs pradaxa and eliquis with the patient and family. Verbalized understanding. Patient states that she does not want to be place on coumadin do to the demands of monitoring of the medication. She would like to be placed on eliquis and she understanding that there is a risk of spontaneous bleeding and no reversal agent . Discussed bleeding that should be reported if it develops. ~ will start eliquis 5mg po BID ~tolerating well (6) EFRA (obstructive sleep apnea) Current Visit: Yes Status: Acute Code(s): G47.33 - OBSTRUCTIVE SLEEP APNEA ( ADULT) (PEDIATRIC) SNOMED Code(s): 03730885 Comment: CPAP at night (7) DVT prophylaxis Current Visit: Yes Status: Acute Code(s): JEE4787 - SNOMED Code(s): 208518815 Comment: Eliquis (8) Full code status Current Visit: Yes Status: Acute Code(s): Z78.9 - OTHER SPECIFIED HEALTH STATUS SNOMED Code(s): 872892170 Status and Disposition: inpatient ~ will mostly likely need short term rehab
[2017-04-22] MEDS: Mometasone 220 MCG MDI INH SCH (19:44)
[2017-04-22] MEDS: PTO: Albuterol/Ipratropium RESP(NF) MDI (Combivent Respimat) INH SCH (19:45)
[2017-04-22] MEDS: Latanoprost 0.005%* 2.5 ml BTL BOTH EYES SCH (22:06)
[2017-04-22] MEDS: Apixaban* 5 MG TAB PO SCH (22:06)
[2017-04-22] MEDS: BRIMONIDINE P 0.1% BOTH EYES SCH (22:52)
[2017-04-22] MEDS: traMADol TAB* 50 MG PO PRN (23:33)
--- NOTE | 2017-04-22 23:49 | CONS ---
CARDIOLOGY CONSULTATION: DATE OF CONSULT: 04/22/17 HISTORY OF PRESENT ILLNESS: She was admitted to the hospital with urinary tract infection. The patient and her daughter states the patient has been getting progressively weak over the 2 to 3 days prior to admission. She was describing urinary urgency and frequency with dysuria. The patient ultimately had an episode where she sort of collapsed down the wall when she was transferring from the bathroom back to her chair. The patient did not have a true syncopal episode. In the emergency room, the patient was diagnosed with urinary tract infection. The patient was admitted to the hospital. She was placed on telemetry. On telemetry, the patient was having episodes of normal sinus rhythm as well as episode of atrial fibrillation. The patient's rhythm would change almost immediately from normal rhythm to atrial fibrillation and then back again. When she was in normal sinus rhythm, she had frequent PACs. The patient did not describe any symptoms associated with her abnormal rhythm. She denied any palpitations. She denied any shortness of breath. She denied any chest pain. On her laboratory studies, the patient had minimally elevated troponin levels at 0.08. The patient did have Cardiology consultation with Dr. Lorenzo Biggs back in December 2016. At that time, Dr. Biggs had suggested the patient undergo a stress test and looking to the records, I do not see any evidence that the patient under-went a stress test. The patient was to have a followup with Dr. Borges on 04/19/17, but did not show for that appointment. The patient has a scheduled appointment with Dr. Borges on 05/27/17. PAST MEDICAL HISTORY: Significant for diabetes, morbid obesity, sleep apnea, hypothyroidism, hypertension, pulmonary hypertension, diverticulosis, osteoporosis. PAST SURGICAL HISTORY: Right total knee replacement, cholecystectomy, lumpectomy. MEDICATIONS: Outpatient medications are extensive includin. Levothyroxine 112 mcg daily. 2. Accolate 20 mg b.i.d. 3. Multiple eye drops. 4. Lisinopril 5 mg a day. 5. Metoprolol tartrate 50 mg b.i.d. 6. Potassium 10 mEq a day. 7. Torsemide 10 mg a day. 8. Allopurinol 300 mg a day. 9. Multiple supplements. ALLERGIES: 1. PREDNISONE. 2. STATIN THERAPY. 3. AMOXICILLIN. SOCIAL HISTORY: She lives alone in apartment. Both her daughters give her extensive support. DIAGNOSTIC STUDIES/LAB DATA: White count 5.8, hemoglobin 13, hematocrit 39, and platelet count 81. Chemistries within normal limits. BUN 22, creatinine 1.1. AST and ALT are low. Troponin levels 0.07, second troponin 0.08. TSH 0.31. Urine culture shows Klebsiella. An echocardiogram today demonstrated normal LV size and systolic function. No abnormality of the aortic and mitral valve. She does have moderate pulmonary hypertension and moderate tricuspid regurgitation. Compared to previous echocardiogram, there is no significant change. IMPRESSION: This is a 81-year-old female with a history of morbid obesity, history of diabetes, history of pulmonary hypertension who was admitted to the hospital with urinary tract infection. On her case monitor shows runs of normal sinus rhythm with frequent PACs and atrial fibrillation. The patient does not have any symptoms associated with her atrial fibrillation. Again, the patient was supposed to have a chemical nuclear stress test as an outpatient back in December. The patient did not ultimately scheduled that procedure. For now my recommendation, the patient start anticoagulation. I think the patient is at high risk for thromboembolic events given her episodes of atrial fibrillation. The patient does not have any symptoms. From a cardiac standpoint, I do not think any other testing is necessary. The patient will follow up in [address] Biggs for further recommendation. [id number]/[facility] #: [id number] [place]
[2017-04-23] MEDS ORDERED: diPHENhydraMINE IV* 50 MG/ML 1 ml VIAL (BENADRYL) IV ONE (01:00)
[2017-04-23] MEDS: Levothyroxine TAB* 112 MCG TAB PO SCH (05:38)
[2017-04-23 06:30] LABS: ABS Basophils 0 10^3/ul (0-0.2); ABS Eosinophils 0.2 10^3/ul (0-0.6); ABS Lymphocytes 0.8 10^3/ul (1.0-4.8); ABS Monocytes 0.6 10^3/ul (0-0.8); ABS Neutrophils 2.8 10^3/ul (1.5-7.7); ABS Nucleated RBC 0 10^3/ul; Eosinophil % 4.9 % (0-6); Hematocrit 40 % (35-47); Hemoglobin 13.3 g/dl (12.0-16.0); Lymphocyte % 18.2 % (25-47); Mean Corpuscular HGB Conc 33 g/dl (31-36); Mean Corpuscular Hemoglobin 32 pg (27-31); Mean Corpuscular Volume 97 fL (80-97); Mean Platelet Volume 10 um3 (7.4-10.4); Nucleated Red Blood Cells % 0.2; Platelet Count 89 10^3/ul (150-450); Red Blood Count 4.12 10^6/ul (4.0-5.4); Red Cell Distribution Width 15 % (10.5-15); White Blood Count 4.5 10^3/ul (3.5-10.8)
[2017-04-23 06:43] LABS: EGFR Non-African American 48.9 (>60)
[2017-04-23] MEDS: Insulin LISPRO* 1 UNITS UNIT SUBCUT SCH ×4 (07:44→21:29)
[2017-04-23] MEDS: PTO: Albuterol/Ipratropium RESP(NF) MDI (Combivent Respimat) INH SCH ×4 (08:59→19:34)
[2017-04-23] MEDS: Potassium Chlor TAB* 10 MEQ TAB.ER PO SCH (09:20)
[2017-04-23] MEDS: Apixaban* 5 MG TAB PO SCH ×2 (09:20→19:44)
[2017-04-23] MEDS: Torsemide TAB* 20 MG PO SCH (09:20)
[2017-04-23] MEDS: Cyanocobalamin TAB* 500 MCG PO SCH (09:20)
[2017-04-23] MEDS: Docusate CAP* 100 MG PO SCH ×2 (09:20→19:45)
[2017-04-23] MEDS: Lisinopril TAB* 5 MG PO SCH (09:21)
[2017-04-23] MEDS: Metoprolol Tartrate TAB* 50 mg PO SCH ×2 (09:21→19:45)
[2017-04-23] MEDS: Nystatin TOP POWDER* 15 GM BTL TOPICAL SCH ×3 (09:21→19:58)
[2017-04-23] MEDS: Triamcinolone 0.5% OINT * 15 GM TUBE TOPICAL SCH ×2 (09:21→19:47)
[2017-04-23] MEDS: Allopurinol TAB* 300 MG PO SCH (09:21)
[2017-04-23] MEDS: Pilocarpine 1% OPTH.SOL* 15 ML BTL BOTH EYES SCH (09:22)
[2017-04-23] MEDS: BRIMONIDINE P 0.1% BOTH EYES SCH ×2 (09:22→19:46)
[2017-04-23] MEDS: traMADol TAB* 50 MG PO PRN ×2 (11:29→19:45)
[2017-04-23] MEDS: Ciprofloxacin IV(*) 400 MG in D5W 250 ML BAG* 160 ML IVPB SCH (11:35)
--- NOTE | 2017-04-23 19:29 | PN ---
Subjective Date of Service: 04/23/17 Interval History: Patient state that she is feeling better. denies chest pain or shortness of breath, denies n/v/d or abd pain Family History: Unchanged from Admission Social History: Unchanged from Admission Past Medical History: Unchanged from Admission Objective Active Medications: Acetaminophen (Tylenol Tab*) 650 mg PO Q6H PRN PRN Reason: FEVER/PAIN Last Admin: 04/22/17 19:14 Dose: 650 mg Albuterol (Ventolin 2.5 Mg/3 Ml Neb.Abby*) 2.5 mg INH Q2H PRN PRN Reason: SOB/WHEEZING Albuterol/Ipratropium (Combivent Respimat(Nf)) 1 puff INH QID [facility] PRN Reason: Protocol Last Admin: 04/23/17 16:41 Dose: Not Given Allopurinol (Zyloprim Tab*) 300 mg PO DAILY [facility] Last Admin: 04/23/17 09:21 Dose: 300 mg Apixaban (Eliquis*) 5 mg PO BID [facility] Last Admin: 04/23/17 09:20 Dose: 5 mg Brimonidine Tartrate (Alphagan P 0.1% (Nf)) 1 drop BOTH EYES BID [facility] Last Admin: 04/23/17 09:22 Dose: Not Given Cephalexin HCl (Keflex Cap*) 500 mg PO Q12H [facility] Cyanocobalamin (Vitamin B12 Tab*) 500 mcg PO DAILY [facility] Last Admin: 04/23/17 09:20 Dose: 500 mcg Docusate Sodium (Colace Cap*) 200 mg PO BID [facility] Last Admin: 04/23/17 09:20 Dose: 200 mg Insulin Human Lispro (Humalog*) 0 units SUBCUT ACHS [facility] PRN Reason: Protocol Last Admin: 04/23/17 17:20 Dose: Not Given Latanoprost (Xalatan 0.005%*) 1 drop BOTH EYES BEDTIME [facility] Last Admin: 04/22/17 22:06 Dose: 1 drop Levothyroxine Sodium (Synthroid Tab*) 112 mcg PO 0600 [facility] Last Admin: 04/23/17 05:38 Dose: 112 mcg Lisinopril (Prinivil Tab*) 5 mg PO DAILY [facility] Last Admin: 04/23/17 09:21 Dose: 5 mg Melatonin (Melatonin (Nf)) 3 mg PO BEDTIME PRN; Protocol PRN Reason: Sleep Last Admin: 04/22/17 00:26 Dose: 3 mg Metoprolol Tartrate (Lopressor Tab*) 50 mg PO BID [facility] Last Admin: 04/23/17 09:21 Dose: 50 mg Mometasone Furoate (Asmanex 220 Mcg Mdi *) 2 puff INH 2100 [facility] Last Admin: 04/22/17 19:44 Dose: 2 puff Nystatin (Nystatin Top Powder*) 1 applic TOPICAL TID [facility] Last Admin: 04/23/17 14:43 Dose: 1 applic Ondansetron HCl (Zofran Inj*) 4 mg IV Q6H PRN PRN Reason: NAUSEA Pilocarpine HCl (Pilocarpine 1% Opth.Abby*) 1 drop BOTH EYES DAILY [facility] Last Admin: 04/23/17 09:22 Dose: 1 drop Polyethylene Glycol/Electrolytes (Miralax*) 17 gm PO DAILY PRN PRN Reason: CONSTIPATION Potassium Chloride (Klor Con Er Tab*) 10 meq PO DAILY [facility] Last Admin: 04/23/17 09:20 Dose: 10 meq Senna (Senokot Tab*) 1 tab PO DAILY PRN PRN Reason: CONSTIPATION Torsemide (Demadex*) 10 mg PO DAILY [facility] Last Admin: 04/23/17 09:20 Dose: 10 mg Tramadol HCl (Ultram*) 50 mg PO Q6H PRN PRN Reason: PAIN Last Admin: 04/23/17 11:29 Dose: 50 mg Triamcinolone Acetonide (Triamcinolone 0.5% Oint *) 1 applic TOPICAL BID [facility] Last Admin: 04/23/17 09:21 Dose: 1 applic Vital Signs - 8 hr 04/23/17 04/23/17 04/23/17 11:29 11:35 15:28 Temperature 97.6 F 97.3 F Pulse Rate 66 71 Respiratory 16 18 20 Rate Blood Pressure 113/41 129/35 (mmHg) O2 Sat by Pulse 98 95 Oximetry 04/23/17 16:54 Temperature Pulse Rate Respiratory 16 Rate Blood Pressure (mmHg) O2 Sat by Pulse Oximetry Oxygen Devices in Use Now: None, CPAP Appearance: appears comfortable sitting in chair, obese Ears/Nose/Mouth/Throat: Clear Oropharnyx, Mucous Membranes Moist Neck: NL Appearance and Movements; NL JVP, Trachea Midline Respiratory: Symmetrical Chest Expansion and Respiratory Effort, Clear to Auscultation Cardiovascular: NL Sounds; No Murmurs; No JVD Abdominal: NL Sounds; No Tenderness; No Distention Extremities: No Clubbing, Cyanosis Skin: No Rash or Ulcers Neurological: Alert and Oriented x 3 Nutrition: Taking PO's Result Diagrams: 04/23/17 06:15 04/23/17 06:15 Additional Lab and Data: Lab Results 04/21/17 04/21/17 04/21/17 Range/Units 19:48 20:11 20:11 WBC 5.8 (3.5-10.8) 10^3/ul RBC 4.06 (4.0-5.4) 10^6/ul Hgb 13.1 (12.0-16.0) g/dl Hct 39 (35-47) % MCV 96 (80-97) fL MCH 32 H (27-31) pg MCHC 34 (31-36) g/dl RDW 15 (10.5-15) % Plt Count 81 L (150-450) 10^3/ul MPV 10 (7.4-10.4) um3 Neut % (Auto) 84.4 H (38-83) % Lymph % (Auto) 7.0 L (25-47) % [place] % (Auto) 8.2 H (0-7) % Eos % (Auto) 0.2 (0-6) % Baso % (Auto) 0.2 (0-2) % Absolute Neuts (auto) 4.9 (1.5-7.7) 10^3/ul Absolute Lymphs (auto) 0.4 L (1.0-4.8) 10^3/ul Absolute Monos (auto) 0.5 (0-0.8) 10^3/ul Absolute Eos (auto) 0 (0-0.6) 10^3/ul Absolute Basos (auto) 0 (0-0.2) 10^3/ul Absolute Nucleated RBC 0 10^3/ul Nucleated RBC % 0.1 Sodium 132 L (133-145) mmol/L Potassium 4.2 (3.5-5.0) mmol/L Chloride 98 L (101-111) mmol/L Carbon Dioxide 25 (22-32) mmol/L Anion Gap 9 (2-11) mmol/L BUN 22 (6-24) mg/dL Creatinine 1.17 H (0.51-0.95) mg/dL Est GFR ( Amer) 57.4 (>60) Est GFR (Non-Af Amer) 44.6 (>60) BUN/Creatinine Ratio 18.8 (8-20) Glucose 153 H (70-100) mg/dL Hemoglobin A1c (4.0-5.6) % Lactic Acid (0.5-2.0) mmol/L Calcium 9.4 (8.6-10.3) mg/dL Magnesium 1.7 L (1.9-2.7) mg/dL Total Bilirubin 1.20 H (0.2-1.0) mg/dL AST 24 (13-39) U/L ALT 6 L (7-52) U/L Alkaline Phosphatase 62 (34-104) U/L Troponin I 0.07 H* (<0.04) ng/mL C-Reactive Protein 64.85 H (< 5.00) mg/L Total Protein 6.6 (6.4-8.9) g/dL Albumin 3.2 (3.2-5.2) g/dL Globulin 3.4 (2-4) g/dL Albumin/Globulin Ratio 0.9 L (1-3) TSH 0.31 L (0.34-5.60) mcIU/mL Urine Color Lillie Urine Appearance Turbid Urine pH 6.0 (5-9) Ur Specific Kenneth 1.009 L (1.010-1.030) Urine Protein 1+(30 mg/dl) A (Negative) Urine Ketones Negative (Negative) Urine Blood 1+ A (Negative) Urine Nitrate Negative (Negative) Urine Bilirubin Negative (Negative) Urine Urobilinogen Negative (Negative) Ur Leukocyte Esterase 3+ A (Negative) Urine WBC (Auto) 3+(>20/hpf) A (Absent) Urine RBC (Auto) 3+(>10/hpf) A (Absent) Urine Bacteria 1+ A (Absent) Urine Glucose Negative (Negative) 04/21/17 04/21/17 Range/Units 20:11 20:11 WBC (3.5-10.8) 10^3/ul RBC (4.0-5.4) 10^6/ul Hgb (12.0-16.0) g/dl Hct (35-47) % MCV (80-97) fL MCH (27-31) pg MCHC (31-36) g/dl RDW (10.5-15) % Plt Count (150-450) 10^3/ul MPV (7.4-10.4) um3 Neut % (Auto) (38-83) % Lymph % (Auto) (25-47) % [place] % (Auto) (0-7) % Eos % (Auto) (0-6) % Baso % (Auto) (0-2) % Absolute Neuts (auto) (1.5-7.7) 10^3/ul Absolute Lymphs (auto) (1.0-4.8) 10^3/ul Absolute Monos (auto) (0-0.8) 10^3/ul Absolute Eos (auto) (0-0.6) 10^3/ul Absolute Basos (auto) (0-0.2) 10^3/ul Absolute Nucleated RBC 10^3/ul Nucleated RBC % Sodium (133-145) mmol/L Potassium (3.5-5.0) mmol/L Chloride (101-111) mmol/L Carbon Dioxide (22-32) mmol/L Anion Gap (2-11) mmol/L BUN (6-24) mg/dL Creatinine (0.51-0.95) mg/dL Est GFR ( Amer) (>60) Est GFR (Non-Af Amer) (>60) BUN/Creatinine Ratio (8-20) Glucose (70-100) mg/dL Hemoglobin A1c 6.5 H (4.0-5.6) % Lactic Acid 1.5 (0.5-2.0) mmol/L Calcium (8.6-10.3) mg/dL Magnesium (1.9-2.7) mg/dL Total Bilirubin (0.2-1.0) mg/dL AST (13-39) U/L ALT (7-52) U/L Alkaline Phosphatase (34-104) U/L Troponin I (<0.04) ng/mL C-Reactive Protein (< 5.00) mg/L Total Protein (6.4-8.9) g/dL Albumin (3.2-5.2) g/dL Globulin (2-4) g/dL Albumin/Globulin Ratio (1-3) TSH (0.34-5.60) mcIU/mL Urine Color Urine Appearance Urine pH (5-9) Ur Specific Kenneth (1.010-1.030) Urine Protein (Negative) Urine Ketones (Negative) Urine Blood (Negative) Urine Nitrate (Negative) Urine Bilirubin (Negative) Urine Urobilinogen (Negative) Ur Leukocyte Esterase (Negative) Urine WBC (Auto) (Absent) Urine RBC (Auto) (Absent) Urine Bacteria (Absent) Urine Glucose (Negative) Assess/Plan/Problems-Billing Assessment: Ms. Mcghee is a 81 y.o female with a hx of DM, CHF, EFRA, HTN, hypothyroid that presented to the emergency room after a fall , increased weakness and c/o increased frequency and urgency with urination. Found to have a bladder infection. - Patient Problems (1) UTI (urinary tract infection) Current Visit: Yes Status: Acute Comment: urine culture positive for Kleb. pneumoniea Will stop Cipro~ change to keflex today (2) Diabetes Current Visit: Yes Status: Acute Code(s): E11.9 - TYPE 2 DIABETES MELLITUS WITHOUT COMPLICATIONS SNOMED Code(s): 22335660 Comment: finger sticks AC and HS Lispro sliding scale (3) Hypertension Current Visit: Yes Status: Acute Code(s): I10 - ESSENTIAL (PRIMARY) HYPERTENSION SNOMED Code(s): 14389191 Comment: stable Continue home medications (4) Hypothyroid Current Visit: Yes Status: Acute Code(s): E03.9 - HYPOTHYROIDISM, UNSPECIFIED SNOMED Code(s): 04858728 Comment: TSH 0.31 Continue home medication (5) New onset a-fib Current Visit: Yes Status: Acute Code(s): I48.91 - UNSPECIFIED ATRIAL FIBRILLATION SNOMED Code(s): 24129198 Comment: Consult cardiology ~ Dr. Jef Palaciosasc2 score is 8 putting her at high risk of stroke~ discussed in lenght the risk and benefits of coumadin vs pradaxa and eliquis with the patient and family. Verbalized understanding. Patient states that she does not want to be place on coumadin do to the demands of monitoring of the medication. She would like to be placed on eliquis and she understanding that there is a risk of spontaneous bleeding and no reversal agent . Discussed bleeding that should be reported if it develops. ~ will start eliquis 5mg po BID ~tolerating well (6) EFRA (obstructive sleep apnea) Current Visit: Yes Status: Acute Code(s): G47.33 - OBSTRUCTIVE SLEEP APNEA ( ADULT) (PEDIATRIC) SNOMED Code(s): 91702831 Comment: CPAP at night (7) DVT prophylaxis Current Visit: Yes Status: Acute Code(s): KBS4569 - SNOMED Code(s): 606502781 Comment: Jessica (8) Full code status Current Visit: Yes Status: Acute Code(s): Z78.9 - OTHER SPECIFIED HEALTH STATUS SNOMED Code(s): 209167343 Status and Disposition: inpatient ~ will need short term rehab
[2017-04-23] MEDS: Mometasone 220 MCG MDI INH SCH (19:33)
[2017-04-23] MEDS: Cephalexin CAP* 500 MG PO SCH (19:44)
[2017-04-23] MEDS: Latanoprost 0.005%* 2.5 ml BTL BOTH EYES SCH (20:01)
[2017-04-24] MEDS: Cephalexin CAP* 500 MG PO SCH ×2 (05:48→18:34)
[2017-04-24] MEDS: Levothyroxine TAB* 112 MCG TAB PO SCH (05:48)
[2017-04-24] MEDS: traMADol TAB* 50 MG PO PRN (05:54)
[2017-04-24 06:54] LABS: EGFR Non-African American 55.4 (>60)
[2017-04-24] MEDS: PTO: Albuterol/Ipratropium RESP(NF) MDI (Combivent Respimat) INH SCH ×5 (08:29→21:32)
[2017-04-24] MEDS: BRIMONIDINE P 0.1% BOTH EYES SCH (10:51)
[2017-04-24] MEDS: Allopurinol TAB* 300 MG PO SCH (10:56)
[2017-04-24] MEDS: Apixaban* 5 MG TAB PO SCH ×2 (10:57→20:52)
[2017-04-24] MEDS: Torsemide TAB* 20 MG PO SCH (10:57)
[2017-04-24] MEDS: Metoprolol Tartrate TAB* 50 mg PO SCH ×2 (10:57→20:53)
[2017-04-24] MEDS: Cyanocobalamin TAB* 500 MCG PO SCH (10:58)
[2017-04-24] MEDS: Lisinopril TAB* 5 MG PO SCH (10:58)
[2017-04-24] MEDS: Docusate CAP* 100 MG PO SCH ×2 (10:58→20:53)
[2017-04-24] MEDS: Pilocarpine 1% OPTH.SOL* 15 ML BTL BOTH EYES SCH (11:01)
[2017-04-24] MEDS: Potassium Chlor TAB* 10 MEQ TAB.ER PO SCH (11:01)
[2017-04-24] MEDS: Triamcinolone 0.5% OINT * 15 GM TUBE TOPICAL SCH ×2 (11:02→20:59)
[2017-04-24] MEDS: Nystatin TOP POWDER* 15 GM BTL TOPICAL SCH ×3 (11:02→21:02)
[2017-04-24] MEDS: Insulin LISPRO* 1 UNITS UNIT SUBCUT SCH ×3 (11:34→20:49)
--- NOTE | 2017-04-24 19:35 | PN ---
Subjective Date of Service: 04/24/17 Interval History: c/o itching to back. Denies chest pain or shortness of breath. Denies abd pain or n/v/d Family History: Unchanged from Admission Social History: Unchanged from Admission Past Medical History: Unchanged from Admission Objective Active Medications: Acetaminophen (Tylenol Tab*) 650 mg PO Q6H PRN PRN Reason: FEVER/PAIN Last Admin: 04/22/17 19:14 Dose: 650 mg Albuterol (Ventolin 2.5 Mg/3 Ml Neb.Abby*) 2.5 mg INH Q2H PRN PRN Reason: SOB/WHEEZING Albuterol/Ipratropium (Combivent Respimat(Nf)) 1 puff INH QID [facility] PRN Reason: Protocol Last Admin: 04/24/17 16:51 Dose: 1 puff Allopurinol (Zyloprim Tab*) 300 mg PO DAILY [facility] Last Admin: 04/24/17 10:56 Dose: 300 mg Apixaban (Eliquis*) 5 mg PO BID [facility] Last Admin: 04/24/17 10:57 Dose: 5 mg Brimonidine Tartrate (Alphagan 0.2%) 1 drop BOTH EYES BID [facility] Cephalexin HCl (Keflex Cap*) 500 mg PO Q12H [facility] Last Admin: 04/24/17 18:34 Dose: 500 mg Cyanocobalamin (Vitamin B12 Tab*) 500 mcg PO DAILY [facility] Last Admin: 04/24/17 10:58 Dose: 500 mcg Docusate Sodium (Colace Cap*) 200 mg PO BID [facility] Last Admin: 04/24/17 10:58 Dose: 200 mg Insulin Human Lispro (Humalog*) 0 units SUBCUT ACHS [facility] PRN Reason: Protocol Last Admin: 04/24/17 16:50 Dose: Not Given Latanoprost (Xalatan 0.005%*) 1 drop BOTH EYES BEDTIME [facility] Last Admin: 04/23/17 20:01 Dose: 1 drop Levothyroxine Sodium (Synthroid Tab*) 112 mcg PO 0600 [facility] Last Admin: 04/24/17 05:48 Dose: 112 mcg Lisinopril (Prinivil Tab*) 5 mg PO DAILY [facility] Last Admin: 04/24/17 10:58 Dose: 5 mg Melatonin (Melatonin (Nf)) 3 mg PO BEDTIME PRN; Protocol PRN Reason: Sleep Last Admin: 04/22/17 00:26 Dose: 3 mg Metoprolol Tartrate (Lopressor Tab*) 50 mg PO BID [facility] Last Admin: 04/24/17 10:57 Dose: 50 mg Mometasone Furoate (Asmanex 220 Mcg Mdi *) 2 puff INH 2100 [facility] Last Admin: 04/23/17 19:33 Dose: 2 puff Nystatin (Nystatin Top Powder*) 1 applic TOPICAL TID [facility] Last Admin: 04/24/17 15:04 Dose: 1 applic Ondansetron HCl (Zofran Inj*) 4 mg IV Q6H PRN PRN Reason: NAUSEA Pilocarpine HCl (Pilocarpine 1% Opth.Abby*) 1 drop BOTH EYES DAILY [facility] Last Admin: 04/24/17 11:01 Dose: 1 drop Polyethylene Glycol/Electrolytes (Miralax*) 17 gm PO DAILY PRN PRN Reason: CONSTIPATION Potassium Chloride (Klor Con Er Tab*) 10 meq PO DAILY [facility] Last Admin: 04/24/17 11:01 Dose: 10 meq Senna (Senokot Tab*) 1 tab PO DAILY PRN PRN Reason: CONSTIPATION Last Admin: 04/24/17 13:17 Dose: 1 tab Torsemide (Demadex*) 10 mg PO DAILY [facility] Last Admin: 04/24/17 10:57 Dose: 10 mg Tramadol HCl (Ultram*) 50 mg PO Q6H PRN PRN Reason: PAIN Last Admin: 04/24/17 05:54 Dose: 50 mg Triamcinolone Acetonide (Triamcinolone 0.5% Oint *) 1 applic TOPICAL BID [facility] Last Admin: 04/24/17 11:02 Dose: 1 applic Vital Signs - 8 hr 04/24/17 04/24/17 04/24/17 15:14 15:17 16:35 Temperature 97.8 F Pulse Rate 66 Respiratory 20 Rate Blood Pressure 126/46 (mmHg) O2 Sat by Pulse 100 100 100 Oximetry Oxygen Devices in Use Now: Nasal Cannula Appearance: appears comfortable sitting in the chair Eyes: No Scleral Icterus Ears/Nose/Mouth/Throat: Clear Oropharnyx, Mucous Membranes Moist Neck: NL Appearance and Movements; NL JVP, Trachea Midline Respiratory: Symmetrical Chest Expansion and Respiratory Effort, Clear to Auscultation Cardiovascular: NL Sounds; No Murmurs; No JVD Abdominal: NL Sounds; No Tenderness; No Distention Extremities: No Edema, No Clubbing, Cyanosis Skin: - - abdominal pannus with dry scaley skin Neurological: Alert and Oriented x 3 Nutrition: Taking PO's Result Diagrams: 04/23/17 06:15 04/24/17 05:56 Additional Lab and Data: Lab Results 04/21/17 04/21/17 04/21/17 Range/Units 19:48 20:11 20:11 WBC 5.8 (3.5-10.8) 10^3/ul RBC 4.06 (4.0-5.4) 10^6/ul Hgb 13.1 (12.0-16.0) g/dl Hct 39 (35-47) % MCV 96 (80-97) fL MCH 32 H (27-31) pg MCHC 34 (31-36) g/dl RDW 15 (10.5-15) % Plt Count 81 L (150-450) 10^3/ul MPV 10 (7.4-10.4) um3 Neut % (Auto) 84.4 H (38-83) % Lymph % (Auto) 7.0 L (25-47) % Stevens % (Auto) 8.2 H (0-7) % Eos % (Auto) 0.2 (0-6) % Baso % (Auto) 0.2 (0-2) % Absolute Neuts (auto) 4.9 (1.5-7.7) 10^3/ul Absolute Lymphs (auto) 0.4 L (1.0-4.8) 10^3/ul Absolute Monos (auto) 0.5 (0-0.8) 10^3/ul Absolute Eos (auto) 0 (0-0.6) 10^3/ul Absolute Basos (auto) 0 (0-0.2) 10^3/ul Absolute Nucleated RBC 0 10^3/ul Nucleated RBC % 0.1 Sodium 132 L (133-145) mmol/L Potassium 4.2 (3.5-5.0) mmol/L Chloride 98 L (101-111) mmol/L Carbon Dioxide 25 (22-32) mmol/L Anion Gap 9 (2-11) mmol/L BUN 22 (6-24) mg/dL Creatinine 1.17 H (0.51-0.95) mg/dL Est GFR ( Amer) 57.4 (>60) Est GFR (Non-Af Amer) 44.6 (>60) BUN/Creatinine Ratio 18.8 (8-20) Glucose 153 H (70-100) mg/dL Hemoglobin A1c (4.0-5.6) % Lactic Acid (0.5-2.0) mmol/L Calcium 9.4 (8.6-10.3) mg/dL Magnesium 1.7 L (1.9-2.7) mg/dL Total Bilirubin 1.20 H (0.2-1.0) mg/dL AST 24 (13-39) U/L ALT 6 L (7-52) U/L Alkaline Phosphatase 62 (34-104) U/L Troponin I 0.07 H* (<0.04) ng/mL C-Reactive Protein 64.85 H (< 5.00) mg/L Total Protein 6.6 (6.4-8.9) g/dL Albumin 3.2 (3.2-5.2) g/dL Globulin 3.4 (2-4) g/dL Albumin/Globulin Ratio 0.9 L (1-3) TSH 0.31 L (0.34-5.60) mcIU/mL Urine Color Lillie Urine Appearance Turbid Urine pH 6.0 (5-9) Ur Specific [place] 1.009 L (1.010-1.030) Urine Protein 1+(30 mg/dl) A (Negative) Urine Ketones Negative (Negative) Urine Blood 1+ A (Negative) Urine Nitrate Negative (Negative) Urine Bilirubin Negative (Negative) Urine Urobilinogen Negative (Negative) Ur Leukocyte Esterase 3+ A (Negative) Urine WBC (Auto) 3+(>20/hpf) A (Absent) Urine RBC (Auto) 3+(>10/hpf) A (Absent) Urine Bacteria 1+ A (Absent) Urine Glucose Negative (Negative) 04/21/17 04/21/17 Range/Units 20:11 20:11 WBC (3.5-10.8) 10^3/ul RBC (4.0-5.4) 10^6/ul Hgb (12.0-16.0) g/dl Hct (35-47) % MCV (80-97) fL MCH (27-31) pg MCHC (31-36) g/dl RDW (10.5-15) % Plt Count (150-450) 10^3/ul MPV (7.4-10.4) um3 Neut % (Auto) (38-83) % Lymph % (Auto) (25-47) % Stevens % (Auto) (0-7) % Eos % (Auto) (0-6) % Baso % (Auto) (0-2) % Absolute Neuts (auto) (1.5-7.7) 10^3/ul Absolute Lymphs (auto) (1.0-4.8) 10^3/ul Absolute Monos (auto) (0-0.8) 10^3/ul Absolute Eos (auto) (0-0.6) 10^3/ul Absolute Basos (auto) (0-0.2) 10^3/ul Absolute Nucleated RBC 10^3/ul Nucleated RBC % Sodium (133-145) mmol/L Potassium (3.5-5.0) mmol/L Chloride (101-111) mmol/L Carbon Dioxide (22-32) mmol/L Anion Gap (2-11) mmol/L BUN (6-24) mg/dL Creatinine (0.51-0.95) mg/dL Est GFR ( Amer) (>60) Est GFR (Non-Af Amer) (>60) BUN/Creatinine Ratio (8-20) Glucose (70-100) mg/dL Hemoglobin A1c 6.5 H (4.0-5.6) % Lactic Acid 1.5 (0.5-2.0) mmol/L Calcium (8.6-10.3) mg/dL Magnesium (1.9-2.7) mg/dL Total Bilirubin (0.2-1.0) mg/dL AST (13-39) U/L ALT (7-52) U/L Alkaline Phosphatase (34-104) U/L Troponin I (<0.04) ng/mL C-Reactive Protein (< 5.00) mg/L Total Protein (6.4-8.9) g/dL Albumin (3.2-5.2) g/dL Globulin (2-4) g/dL Albumin/Globulin Ratio (1-3) TSH (0.34-5.60) mcIU/mL Urine Color Urine Appearance Urine pH (5-9) Ur Specific [place] (1.010-1.030) Urine Protein (Negative) Urine Ketones (Negative) Urine Blood (Negative) Urine Nitrate (Negative) Urine Bilirubin (Negative) Urine Urobilinogen (Negative) Ur Leukocyte Esterase (Negative) Urine WBC (Auto) (Absent) Urine RBC (Auto) (Absent) Urine Bacteria (Absent) Urine Glucose (Negative) Assess/Plan/Problems-Billing Assessment: Ms. Mcghee is a 81 y.o female with a hx of DM, CHF, EFRA, HTN, hypothyroid that presented to the emergency room after a fall , increased weakness and c/o increased frequency and urgency with urination. Found to have a bladder infection. - Patient Problems (1) UTI (urinary tract infection) Current Visit: Yes Status: Acute Comment: urine culture positive for Kleb. pneumoniea Will stop Cipro~ change to keflex (2) Diabetes Current Visit: Yes Status: Acute Code(s): E11.9 - TYPE 2 DIABETES MELLITUS WITHOUT COMPLICATIONS SNOMED Code(s): 94264618 Comment: finger sticks AC and HS Lispro sliding scale (3) Hypertension Current Visit: Yes Status: Acute Code(s): I10 - ESSENTIAL (PRIMARY) HYPERTENSION SNOMED Code(s): 66372449 Comment: stable Continue home medications (4) Hypothyroid Current Visit: Yes Status: Acute Code(s): E03.9 - HYPOTHYROIDISM, UNSPECIFIED SNOMED Code(s): 21541973 Comment: TSH 0.31 Continue home medication (5) New onset a-fib Current Visit: Yes Status: Acute Code(s): I48.91 - UNSPECIFIED ATRIAL FIBRILLATION SNOMED Code(s): 58764515 Comment: Consult cardiology ~ Dr. Jef Palaciosasc2 score is 8 putting her at high risk of stroke~ discussed in lenght the risk and benefits of coumadin vs pradaxa and eliquis with the patient and family. Verbalized understanding. Patient states that she does not want to be place on coumadin do to the demands of monitoring of the medication. She would like to be placed on eliquis and she understanding that there is a risk of spontaneous bleeding and no reversal agent . Discussed bleeding that should be reported if it develops. ~ will start eliquis 5mg po BID ~tolerating well (6) EFRA (obstructive sleep apnea) Current Visit: Yes Status: Acute Code(s): G47.33 - OBSTRUCTIVE SLEEP APNEA ( ADULT) (PEDIATRIC) SNOMED Code(s): 43785216 Comment: CPAP at night (7) DVT prophylaxis Current Visit: Yes Status: Acute Code(s): ADU7630 - SNOMED Code(s): 270629837 Comment: Jessica (8) Full code status Current Visit: Yes Status: Acute Code(s): Z78.9 - OTHER SPECIFIED HEALTH STATUS SNOMED Code(s): 381808512 Status and Disposition: inpatient ~ will need short term rehab~ referral out D/c when bed available
[2017-04-24] MEDS: PTO: Brimonidine 0.2% 5 ML BTL BOTH EYES SCH (20:57)
[2017-04-24] MEDS: Latanoprost 0.005%* 2.5 ml BTL BOTH EYES SCH (20:58)
[2017-04-24] MEDS: Mometasone 220 MCG MDI INH SCH (21:33)
[2017-04-25] MEDS: traMADol TAB* 50 MG PO PRN (03:26)
[2017-04-25] MEDS: Levothyroxine TAB* 112 MCG TAB PO SCH (05:11)
[2017-04-25] MEDS: Cephalexin CAP* 500 MG PO SCH (07:19)
[2017-04-25] MEDS: Insulin LISPRO* 1 UNITS UNIT SUBCUT SCH ×2 (07:22→11:58)
[2017-04-25] MEDS: PTO: Albuterol/Ipratropium RESP(NF) MDI (Combivent Respimat) INH SCH ×2 (09:14→14:43)
[2017-04-25] MEDS: Torsemide TAB* 20 MG PO SCH (09:26)
[2017-04-25] MEDS: Cyanocobalamin TAB* 500 MCG PO SCH (09:26)
[2017-04-25] MEDS: Apixaban* 5 MG TAB PO SCH (09:26)
[2017-04-25] MEDS: Potassium Chlor TAB* 10 MEQ TAB.ER PO SCH (09:26)
[2017-04-25] MEDS: Metoprolol Tartrate TAB* 50 mg PO SCH (09:27)
[2017-04-25] MEDS: Lisinopril TAB* 5 MG PO SCH (09:27)
[2017-04-25] MEDS: Allopurinol TAB* 300 MG PO SCH (09:27)
[2017-04-25] MEDS: PTO: Brimonidine 0.2% 5 ML BTL BOTH EYES SCH (09:27)
[2017-04-25] MEDS: Docusate CAP* 100 MG PO SCH (09:27)
[2017-04-25] MEDS: Nystatin TOP POWDER* 15 GM BTL TOPICAL SCH ×2 (09:28→15:06)
[2017-04-25] MEDS: Triamcinolone 0.5% OINT * 15 GM TUBE TOPICAL SCH (09:28)
[2017-04-25] MEDS: Pilocarpine 1% OPTH.SOL* 15 ML BTL BOTH EYES SCH ×2 (09:28→09:32)
--- NOTE | 2017-04-25 12:09 | PN ---
Subjective Date of Service: 04/25/17 Interval History: Patient seen and examined at bedside. Denies fever, chills, shortness of breath (not increased above baseline), chest discomfort, N/V/D. Pt states that she has urinary urgency, that is increased above her baseline. Tele: Sinus rhythm with 1st degree block, rate 60-70's Family History: Unchanged from Admission Social History: Unchanged from Admission Past Medical History: Unchanged from Admission Objective Active Medications: Acetaminophen (Tylenol Tab*) 650 mg PO Q6H PRN Reason: FEVER/PAIN Albuterol (Ventolin 2.5 Mg/3 Ml Neb.Abby*) 2.5 mg INH Q2H PRN Reason: SOB/ WHEEZING Albuterol/Ipratropium (Combivent Respimat(Nf)) 1 puff INH QID JANICE Allopurinol (Zyloprim Tab*) 300 mg PO DAILY JANICE Apixaban (Eliquis*) 5 mg PO BID JANICE Brimonidine Tartrate (Alphagan 0.2%) 1 drop BOTH EYES BID JANICE Cephalexin HCl (Keflex Cap*) 500 mg PO Q12H JANICE Cyanocobalamin (Vitamin B12 Tab*) 500 mcg PO DAILY JANICE Docusate Sodium (Colace Cap*) 200 mg PO BID JANICE Insulin Human Lispro (Humalog*) 0 units SUBCUT ACHS JANICE Latanoprost (Xalatan 0.005%*) 1 drop BOTH EYES BEDTIME JANICE Levothyroxine Sodium (Synthroid Tab*) 112 mcg PO 0600 JANICE Lisinopril (Prinivil Tab*) 5 mg PO DAILY [facility] Melatonin (Melatonin (Nf)) 3 mg PO BEDTIME PRN; Protocol Reason: Sleep Metoprolol Tartrate (Lopressor Tab*) 50 mg PO BID JANICE Mometasone Furoate (Asmanex 220 Mcg Mdi *) 2 puff INH 2100 JANICE Nystatin (Nystatin Top Powder*) 1 applic TOPICAL TID JANICE Ondansetron HCl (Zofran Inj*) 4 mg IV Q6H PRN Reason: NAUSEA Pilocarpine HCl (Pilocarpine 1% Opth.Abby*) 1 drop BOTH EYES DAILY JANICE Polyethylene Glycol/Electrolytes (Miralax*) 17 gm PO DAILY PRN Reason: CONSTIPATION Potassium Chloride (Klor Con Er Tab*) 10 meq PO DAILY JANICE Senna (Senokot Tab*) 1 tab PO DAILY PRN Reason: CONSTIPATION Torsemide (Demadex*) 10 mg PO DAILY JANICE Tramadol HCl (Ultram*) 50 mg PO Q6H PRN Reason: PAIN Triamcinolone Acetonide (Triamcinolone 0.5% Oint *) 1 applic TOPICAL BID JANICE Vital Signs - 8 hr 04/25/17 04/25/17 04/25/17 05:26 07:10 07:42 Temperature 98.2 F Pulse Rate 80 Respiratory 16 18 16 Rate Blood Pressure 130/61 (mmHg) O2 Sat by Pulse 98 Oximetry 04/25/17 04/25/17 04/25/17 07:45 09:15 11:35 Temperature 97.5 F Pulse Rate 68 65 Respiratory 16 20 Rate Blood Pressure 93/44 (mmHg) O2 Sat by Pulse 98 92 95 Oximetry Oxygen Devices in Use Now: Nasal Cannula - 2L Appearance: NAD, sitting up in a chair Ears/Nose/Mouth/Throat: Mucous Membranes Moist Respiratory: Symmetrical Chest Expansion and Respiratory Effort, Clear to Auscultation Cardiovascular: NL Sounds; No Murmurs; No JVD, RRR Abdominal: NL Sounds; No Tenderness; No Distention Extremities: - - Mild bilateral LE edema Skin: - - Ecchymosis to bilateral LEs Neurological: Alert and Oriented x 3, NL Muscle Strength and Tone Lines/Tubes/Other Access: Clean, Dry and Intact Peripheral IV - site benign Nutrition: Taking PO's Result Diagrams: 04/23/17 06:15 04/24/17 05:56 Additional Lab and Data: Assess/Plan/Problems-Billing Assessment: Ms. Mcghee is a 81 y.o female with a hx of DM, CHF, EFRA, HTN, hypothyroid that presented to the emergency room after a fall , increased weakness and c/o increased frequency and urgency with urination. Found to have a UTI. - Patient Problems (1) UTI (urinary tract infection) Comment: - Urine culture positive for Kleb. pneumoniea - Continue keflex (2) New onset a-fib Code(s): I48.91 - UNSPECIFIED ATRIAL FIBRILLATION SNOMED Code(s): 50941402 Comment: - Now in sinus rhythm - Consult cardiology, input appreciated - Chadvasc2 score is 8 putting her at high risk of stroke - Continue eliquis 5mg po BID and metoprolol (3) Elevated troponin Code(s): R74.8 - ABNORMAL LEVELS OF OTHER SERUM ENZYMES SNOMED Code(s): 276488239 Comment: - Denies chest pain - Troponin peaked at 0.08 - Echo, see report - Suspect secondary to demand ischemia (4) Diabetes Code(s): E11.9 - TYPE 2 DIABETES MELLITUS WITHOUT COMPLICATIONS SNOMED Code(s) : 68619877 Comment: - Glucose 110-120's (5) Hypertension Code(s): I10 - ESSENTIAL (PRIMARY) HYPERTENSION SNOMED Code(s): 25297412 Comment: - SBP 90-130's - Continue home medications (6) Hypothyroid Code(s): E03.9 - HYPOTHYROIDISM, UNSPECIFIED SNOMED Code(s): 98873080 Comment: - TSH 0.31 - Continue home medication (7) EFRA (obstructive sleep apnea) Code(s): G47.33 - OBSTRUCTIVE SLEEP APNEA (ADULT) (PEDIATRIC) SNOMED Code(s): 95805507 Comment: - CPAP at night (8) Asthma Code(s): J45.909 - UNSPECIFIED ASTHMA, UNCOMPLICATED SNOMED Code(s): 667357632 Comment: - Continue O2 at 2L via NC - Continue albuterol PRN (9) Morbid obesity Code(s): E66.01 - MORBID (SEVERE) OBESITY DUE TO EXCESS CALORIES SNOMED Code(s ): 826343545 Comment: - BMI 53 (10) Heart failure Code(s): I50.9 - HEART FAILURE, UNSPECIFIED SNOMED Code(s): 05904269 Comment: - EF 60-65% - Continue Torsemide (11) Gout Code(s): M10.9 - GOUT, UNSPECIFIED SNOMED Code(s): 42779083 Comment: - Continue allopurinol (12) Glaucoma Code(s): H40.9 - UNSPECIFIED GLAUCOMA SNOMED Code(s): 43233662 Comment: - Continue home medications (13) DVT prophylaxis Code(s): OWO5390 - SNOMED Code(s): 126382771 Comment: - Jessica (14) Full code status Code(s): Z78.9 - OTHER SPECIFIED HEALTH STATUS SNOMED Code(s): 534825231 Status and Disposition: Inpatient. Stale for discharge to [facility].
--- NOTE | 2017-04-25 14:06 | DS ---
CC: Dr. Tri Borges; [facility]* DISCHARGE SUMMARY: DATE OF ADMISSION: 04/21/17 DATE OF DISCHARGE: 04/25/17 ATTENDING PHYSICIAN: Dr. Staci Butterfield* (dictated by Shi Hernandez NP). PRIMARY CARE PROVIDER: Dr. Tri Borges. PRIMARY DIAGNOSES: 1. Klebsiella pneumoniae urinary tract infection. 2. Hypertroponinemia, suspect secondary to demand ischemia. 3. Presyncope, suspect secondary to urinary tract infection. SECONDARY DIAGNOSES: 1. Diabetes mellitus. 2. Congestive heart failure. 3. Moderate pulmonary hypertension. 4. Hypertension. 5. Hypothyroidism. 6. Asthma, on supplemental oxygen. 7. Obstructive sleep apnea. 8. Super morbid obesity. 9. Diverticulosis. 10. Osteoporosis. 11. Glaucoma. 12. Gout. CONSULTATIONS WHILE IN THE HOSPITAL: Dr. Jose Fuchs with Cardiology. STUDIES WHILE IN THE HOSPITAL: 1. Chest x-ray on 04/21/17. Radiologist's impression: Cardiomegaly with pulmonary interstitial edema. 2. Transthoracic echocardiogram on 04/22/17. Application Coordinator's conclusion: Global left ventricular wall motion and contractility are within normal limits. There is normal left ventricular systolic function, estimated ejection fraction is 60% to 65%. There is septal flattening of the interventricular septum consistent with right ventricular volume or pressure overload. The right ventricular global systolic function is mildly reduced. There is no evidence of aortic stenosis, mild- to-moderate mitral regurgitation, mild-to- moderate tricuspid regurgitation, [id number] pulmonary hypertension. There is no significant pericardial effusion. There are no significant changes when compared to previous study done on 08/01/10. DISCHARGE MEDICATIONS: New home medications: 1. Eliquis 5 mg oral twice daily. 2. Keflex 500 mg oral twice daily for 6 more days. 3. Colace 200 mg oral twice daily. 4. Nystatin powder applied topical 3 times daily. 5. Triamcinolone cream 0.5% applied topical twice daily. 6. Tramadol 50 mg oral every 6 hours as needed for severe pain. Continued home medications: 1. Accolate 20 mg oral twice daily. 2. Potassium citrate 10 mEq oral daily. 3. Latanoprost 0.005% ophthalmic 1 drop to both eyes daily at bedtime. 4. Alphagan P 0.1% one drop to both eyes twice daily. 5. Lisinopril 5 mg oral daily. 6. Metoprolol tartrate 50 mg oral twice daily. 7. Torsemide 10 mg oral daily. 8. QVAR 80 mcg MDI 2 puffs inhalation twice daily. 9. Combivent Respimat 1 inhalation 4 times daily. 10. Benadryl 25 mg oral daily as needed for allergy symptoms or rash. 11. EpiPen 0.3 mg IM once as needed for allergies. 12. Allopurinol 300 mg oral daily. 13. Pilocarpine 1% ophthalmic solution 1 drop to both eyes daily. 14. Levothyroxine 112 mcg oral daily. 15. MiraLAX 17 g oral daily. 16. Vitamin B12 at 500 mcg oral daily. 17. Acetaminophen 500 mg oral every 6 hours as needed for pain. 18. Senokot 1 tablet oral daily as needed for constipation. HISTORY OF PRESENT ILLNESS/HOSPITAL COURSE: Ms. Mcghee is a 81-year-old female with past medical history significant for super morbid obesity; diabetes mellitus type 2; congestive heart failure; moderate pulmonary hypertension; hypertension; hypothyroidism; asthma, on 2 L oxygen; obstructive sleep apnea, who reports gradual onset of progressive weakness over a 2 to 3-day period, associated with fevers, chills, increased urinary urgency and frequency without dysuria, lightheadedness, nausea, mild periumbilical abdominal discomfort, who when her children assisted her to the bathroom when returning from the bathroom to the bedroom her "legs gave out" and she slid down the wall. EMS was called and the patient was transported to the emergency room. While in the emergency room, the patient had labs notable for a positive urinalysis, elevated troponins. She had an EKG showing sinus rhythm and frequent PACs and a chest x-ray showing cardiomegaly with pulmonary interstitial edema and the hospitalists were asked to evaluate the patient for admission. While in the hospital, the patient's troponins were trended. She denied any chest pain. She had a transthoracic echocardiogram without any significant findings. Her elevated troponin was suspected to be secondary to demand ischemia. She went into new AFib, later converted to a sinus rhythm. She was started on Eliquis due to her CHADS-VASc score being an 8. The patient was initially started on Cipro for her urinary tract infection and later converted to Keflex. She was seen by Physical Therapy and felt that she had rehab needs. The patient received a bed offer from [facility]. Ms. Mcghee will be discharged to [facility] today. Vital signs are as follows: Temperature 97.5, heart rate 65, respiratory rate 20, O2 sat 95 % on 2 L, blood pressure 93/44. DISCHARGE PLAN: Ms. Mcghee will be discharged to [facility] today. Activity as tolerated. She should be evaluated by Physical Therapy and Occupational Therapy and continue treatment as needed. She should be on a low- sodium, consistent carbohydrate diet. In regards to her urinary tract infection , she should receive Keflex twice daily for 6 more days to complete a 10-day course. For her AFib, she is now in a sinus rhythm, she will be continued on metoprolol and Eliquis. Continue to monitor the patient's heart rate as she often is in the lower 60s and may need her metoprolol decreased if she becomes bradycardic. Her glucoses have been controlled. She should be continued on her CPAP and 2 L oxygen at night and oxygen as needed during the day. The patient should return to the emergency room for any chest pain, shortness of breath. This is a summarized report of a complex medical history and hospital stay. For further details, please see the entire medical record. TIME SPENT: Time for this discharge was approximately 50 minutes, greater than half of that was spent with the patient discussing discharge plans and instructions. CONDITION ON DISCHARGE: Stable. Reviewed by JOSÉ LUIS WILLS 04/27/17 1714 [id number]/[facility] #: [id number] AKBAR
[2017-04-25 20:07] VITALS: BP 130/60
== END 2017-04-25 16:04 | DRG 690 ==
LOC: ED 17:55 → MEDTELE 22:16 → OBSVTOIN 04-22 09:00
PROVIDERS: ADMIT Hospitalist; ATTEND Internal Medicine
DX: N39.0 Urinary tract infection, site not specified (principal); I24.8 Other forms of acute ischemic heart disease; I27.20 Pulmonary hypertension, unspecified; E66.01 Morbid (severe) obesity due to excess calories; I11.0 Hypertensive heart disease with heart failure; I50.9 Heart failure, unspecified; I07.1 Rheumatic tricuspid insufficiency; B96.1 Klebsiella pneumoniae [K. pneumoniae] as the cause of diseases classified elsewhere; E78.00 Pure hypercholesterolemia, unspecified; E11.9 Type 2 diabetes mellitus without complications; Z96.651 Presence of right artificial knee joint; J45.909 Unspecified asthma, uncomplicated; M19.90 Unspecified osteoarthritis, unspecified site; K57.90 Diverticulosis of intestine, part unspecified, without perforation or abscess without bleeding; H40.9 Unspecified glaucoma; E03.9 Hypothyroidism, unspecified; G47.33 Obstructive sleep apnea (adult) (pediatric); M10.9 Gout, unspecified; M81.0 Age-related osteoporosis without current pathological fracture; Z82.3 Family history of stroke; Z80.3 Family history of malignant neoplasm of breast; Z99.81 Dependence on supplemental oxygen; Z79.01 Long term (current) use of anticoagulants; Z87.891 Personal history of nicotine dependence; Z90.49 Acquired absence of other specified parts of digestive tract; Z68.43 Body mass index [BMI] 50.0-59.9, adult; Z88.8 Allergy status to other drugs, medicaments and biological substances; Z88.1 Allergy status to other antibiotic agents; L29.8 Other pruritus; I48.91 Unspecified atrial fibrillation
CPT/HCPCS: 36415; 71045; 80048; 80053; 81003; 81015; 82565; 83036; 83605; 83735; 84443; 84484; 84520; 85025; 85060; 85610; 85730; 86140; 87077; 87086; 87186; 93005; 93306; 94640; 94760; 99284; A9270-GY; C8929; G8978-GP-CJ; G8978-GP-CK; G8979-GP-CI; G8987-GO-CK; G8988-GO-CI; J0744; J1200; J1644; J3475

== ENCOUNTER 2018-04-30 16:26 | Inpatient (IN) | payer MEDICARE, BC ==
--- NOTE | 2018-04-30 19:57 | ED ---
Complex/Multi-Sys Presentation - HPI Summary HPI Summary: This patient is an 82 year old F presenting to ED with a chief complaint of increased weakness since 1.5 weeks ago. The patient lives at home alone but her family visits every so often. The patient fell 3 days ago while ambulating and fell flat on her buttocks while trying to get from one chair to the next. The CC is described as difficulty standing up and getting in and out of bed. Patient uses a walker at home. She says there is a spot on my back that is weak. The patient rates the pain 3/10 in severity. Symptoms aggravated by nothing. Symptoms alleviated by nothing. Patient denies fever. Patient is on 2L O2 at home. She is also on blood thinners. Patient sees Dr. Borges. PMHx of asthma. Patient is a former smoker. - History Of Current Complaint Chief Complaint: EDWeakness Time Seen by Provider: 04/30/18 19:19 Hx Obtained From: Patient Onset/Duration: Sudden Onset, Lasting Weeks - since 1.5 weeks ago, Still Present Timing: Constant, Weeks Severity Currently: Mild - 3/10 Aggravating Factor(s): nothing Alleviating Factor(s): nothing Associated Signs And Symptoms: Positive: Weakness, Other - recent falls due to weakness. Negative: Fever - Allergies/Home Medications Allergies/Adverse Reactions: Allergies Allergy/AdvReac Type Severity Reaction Status Date / Time prednisone Allergy Intermediate Swelling Verified 04/30/18 16:45 Of Face,Lips,& Throat Adhesive Tape Allergy Mild Rash And Verified 04/30/18 16:45 Itching Dubnjiq-Ybu-Mzy Reductase Allergy Mild Rash And Verified 04/30/18 16:45 Inhibitor Itching amoxicillin AdvReac Mild Nausea And Verified 04/30/18 16:45 Vomiting citalopram AdvReac Mild Jittery Verified 04/30/18 16:45 omalizumab AdvReac Mild Jittery Verified 04/30/18 16:45 PMH/Surg Hx/FS Hx/Imm Hx Endocrine/Hematology History: Reports: Hx Diabetes, Hx Thyroid Disease Cardiovascular History: Reports: Hx Congestive Heart Failure, Hx Hypercholesterolemia, Hx Hypertension Respiratory History: Reports: Hx Asthma, Hx Sleep Apnea - current CPAP user History: Denies: Hx Renal Disease Musculoskeletal History: Reports: Hx Arthritis Denies: Hx Rheumatoid Arthritis, Hx Osteoporosis Sensory History: Reports: Hx Glaucoma Denies: Hx Contacts or Glasses, Hx Hearing Aid Opthamlomology History: Reports: Hx Glaucoma Denies: Hx Contacts or Glasses - Cancer History Hx Chemotherapy: No Hx Radiation Therapy: No - Surgical History Surgery Procedure, Year, and Place: cholecystectomy. left breast biopsy. right TKR Infectious Disease History: No Infectious Disease History: Denies: History Other Infectious Disease, Traveled Outside the [place] in Last 30 Days - Family History Known Family History: Positive: Other - 2 sisters had breast cancer. Mother had stroke. - Social History Alcohol Use: None Substance Use Type: Reports: Prescribed Smoking Status (MU): Former Smoker Type: Cigarettes Have You Smoked in the Last Year: No Review of Systems Negative: Fever Positive: Other - recent falls due to weakness Positive: Weakness All Other Systems Reviewed And Are Negative: Yes Physical Exam - Summary Physical Exam Summary: VITAL SIGNS: Reviewed. GENERAL: Patient is a morbidly obese FEMALE who is lying comfortable in the stretcher. Patient is not in any acute respiratory distress. HEAD AND FACE: No signs of trauma. No ecchymosis, hematomas or skull depressions. No sinus tenderness. EYES: PERRLA, EOMI x 2, No injected conjunctiva, no nystagmus. EARS: Hearing grossly intact. Ear canals and tympanic membranes are within normal limits. MOUTH: Oropharynx within normal limits. NECK: Supple, trachea is midline, no adenopathy, no JVD, no carotid bruit, no c- spine tenderness, neck with full ROM. CHEST: Symmetric, no tenderness at palpation LUNGS: Clear to auscultation bilaterally. No wheezing or crackles. Decreased breath sounds bilaterally. CVS: Regular rate and rhythm, S1 and S2 present, no murmurs or gallops appreciated. ABDOMEN: Soft, non-tender. No signs of distention. No rebound no guarding, and no masses palpated. Bowel sounds are normal. EXTREMITIES: FROM in all major joints, no edema, no cyanosis or clubbing. Extremely large mass over R groin extending down to the knee. NEURO: Alert and oriented x 3. No acute neurological deficits. Speech is normal and follows commands. SKIN: Dry and warm. Multiple ecchymotic areas over her shoulders. Triage Information Reviewed: Yes Vital Signs On Initial Exam: Initial Vitals Pulse BP Pulse Ox 87 142/71 92 04/30/18 16:41 04/30/18 16:41 04/30/18 16:41 Vital Signs Reviewed: Yes Diagnostics - Vital Signs Vital Signs Temp Pulse Resp BP Pulse Ox 04/30/18 19:42 93 21 150/81 99 04/30/18 19:11 98 104/58 93 04/30/18 19:00 92 94 04/30/18 18:41 101 104/47 92 04/30/18 18:12 93 120/56 94 04/30/18 18:00 91 95 04/30/18 17:41 95 97/61 92 04/30/18 17:12 91 109/61 91 04/30/18 17:00 89 93 04/30/18 16:42 98.9 F 96 19 142/71 94 04/30/18 16:41 87 142/71 92 - Laboratory Result Diagrams: 04/30/18 21:01 04/30/18 21:01 Lab Statement: Any lab studies that have been ordered have been reviewed, and results considered in the medical decision making process. - Radiology CXR Radiology Interpretation Completed By: ED Physician Summary of Radiographic Findings: No acute processes. Dr. Root has reviewed this radiology report. - EKG 2022 Cardiac Rate: Other Rate - afib at 91 BPM EKG Rhythm: Atrial Fibrillation Re-Evaluation - Re-Evaluation First Eval Re-Evaluation Time: 23:57 Comment: Discussed results and plan for admission with the patient. Patient understands and agrees with this plan. Complex Multi-Symp Course/Dx Assessment/Plan: This patient is an 82 year old F presenting to ED with a chief complaint of increased weakness since 1.5 weeks ago. In the ED course, the patient was given fluids. EKG done at 2022 reveals afib at 91 BPM. CXR, per ED physician, reveals no acute processes. Consulted Dr. Mario at 2350 and she accepts the patient for admission. Patient will be admitted with dx of weakness. Patient understands and agrees with this plan. - Diagnoses Differential Diagnoses/HQI/PQRI: Other - weakness Provider Diagnoses: Weakness - Physician Notifications Discussed Care Of Patient With: Zora Mario Time Discussed With Above Provider: 23:50 Instructed by Provider To: Admit As Inpatient Discharge - Sign-Out/Discharge Documenting (check all that apply): Patient Departure - admit Patient Received Moderate/Deep Sedation with Procedure: No - Discharge Plan Condition: Stable Disposition: ADMITTED TO [facility] Referrals: Tri Borges MD [Primary Care Provider] - - Attestation Statements Document Initiated by Scribe: Yes Documenting Scribe: Jeremías Tate Provider For Whom Scribe is Documenting (Include Credential): Juanito Root MD Scribe Attestation: Jeremías Sauer, scribed for Juanito Root MD on 04/30/18 at 5841. Status of Scribe Document: Ready
[2018-04-30] MEDS ORDERED: NS 0.9% 1000 ML** 1,000 ML IV ONE (20:06)
[2018-04-30 21:19] LABS: Hematocrit 33 % (33-41); Hemoglobin 10.7 g/dL (12.0-16.0); Mean Corpuscular HGB Conc 33 g/dL (31-36); Mean Corpuscular Hemoglobin 31 pg (27-31); Mean Corpuscular Volume 94 fL (80-97); Mean Platelet Volume 9.9 fL (7.4-10.4); Platelet Count 111 10^3/uL (150-450); Red Blood Count 3.46 10^6 /uL (3.70-4.87); Red Cell Distribution Width 18 % (10.5-15); White Blood Count 6.1 10^3/uL (3.5-10.8)
[2018-04-30 21:21] LABS: Activated Partial Thrombo Time 34.4 seconds (26.0-36.3); INR 2.07 (0.77-1.02)
[2018-04-30 21:24] LABS: ALT 5 U/L (7-52); AST 15 U/L (13-39); Albumin 3.3 g/dL (3.2-5.2); Albumin/Globulin Ratio 1.4 (1-3); Alkaline Phosphatase 61 U/L (34-104); Anion Gap 8 mmol/L (2-11); BUN/Creatinine Ratio 24.6 (8-20); Blood Urea Nitrogen 28 mg/dL (6-24); C Reactive Protein 9.07 mg/L (<8.01); CO2 Carbon Dioxide 27 mmol/L (22-32); Chloride 102 mmol/L (101-111); Creatine Kinase 16 U/L (10-223); EGFR African American 55.5 (>60); EGFR Non-African American 45.9 (>60); Globulin 2.4 g/dL (2-4); Glucose 108 mg/dL (70-100); Magnesium 1.9 mg/dL (1.9-2.7); Potassium 4.1 mmol/L (3.5-5.0); Sodium 137 mmol/L (135-145); Total Protein 5.7 g/dL (6.4-8.9)
[2018-04-30 21:48] LABS: ABS Basophils 0.1 10^3/ul (0-0.2); ABS Eosinophils 0.1 10^3/ul (0-0.6); ABS Lymphocytes 0.7 10^3/ul (1.0-4.8); ABS Monocytes 0.5 10^3/ul (0-0.8); ABS Neutrophils 4.8 10^3/ul (1.5-7.7); ABS Nucleated RBC 0 10^3/ul; Eosinophil % 0.8 %; Lymphocyte % 12.1 %; Nucleated Red Blood Cells % 0.1
[2018-04-30 23:13] LABS: Urine Appearance Clear; Urine Bilirubin Negative (Negative); Urine Blood Negative (Negative); Urine Color Yellow; Urine Glucose Negative (Negative); Urine Ketones Negative (Negative); Urine Nitrite Negative (Negative); Urine Protein Negative (Negative); Urine Urobilinogen Negative (Negative)
[2018-05-01] MEDS ORDERED: Acetaminophen TAB* 325 MG PO ONE (00:24)
[2018-05-01] MEDS ORDERED: Al Hydrox/Mg Hydrox/Simet LIQ* 30 ML UDC PO PRN (01:15)
[2018-05-01] MEDS ORDERED: Senna TAB PO PRN (01:15)
[2018-05-01] MEDS ORDERED: Ondansetron INJ* 2 MG/ML VIAL IV PRN (01:15)
[2018-05-01] MEDS ORDERED: Furosemide IV* 10 MG/ML VIAL (40 MG) IV ONE ×2 (01:22→12:25)
[2018-05-01 01:39] LABS: % Iron Saturation 10 % (15-55); Iron 40 ug/dL (50-212); Total Iron Binding Capacity 400 mcg/dL (250-450); Transferrin 286 mg/dL (203-362)
[2018-05-01 01:42] LABS: Troponin I 0.03 ng/mL (<0.04)
[2018-05-01 01:55] LABS: TSH (Thyroid Stimulating Horm) 0.87 mcIU/mL (0.34-5.60)
[2018-05-01 02:02] LABS: Ferritin 34.2 ng/mL (11-307)
[2018-05-01 02:06] LABS: Folate 8.63 ng/mL (>3.99)
[2018-05-01 02:06] LABS: Troponin I 0.04 ng/mL (<0.04)
[2018-05-01] MEDS: Diltiazem TAB* 60 MG PO SCH ×5 (03:01→23:43)
--- NOTE | 2018-05-01 03:41 | HP ---
CC: Dr. Tri Borges * HISTORY AND PHYSICAL: DATE OF ADMISSION: 05/01/18 TIME OF EVALUATION: 0100. PRIMARY CARE PHYSICIAN: Tri Borges MD CHIEF COMPLAINT: Weakness with shortness of breath. HISTORY OF PRESENT ILLNESS: This is an 82-year-old female with past medical history of COPD on oxygen, paroxysmal atrial fibrillation on anticoagulation who is morbidly obese who presented to the emergency room initially with her daughter who is no longer present at the bedside, for worsening weakness. The patient states that she lives alone and is independent of her ADLs and she has had weakness over the past several days stating her legs do not seem to work. She was unable to stand. She was not able to get out of the bed or the chair. She fell 4 days ago when she was trying to get from 1 chair to another. She did not have any significant injury at that time, no loss of consciousness. She intermittently gets short of breath with productive cough. She does complain of chest heaviness substernal, some intermittent nausea. She does have constipation. She had a normal bowel movement this morning. No urinary symptoms. No URI symptoms. She has had chills. No headache. No dizziness. She states she normally ambulates with a walker. Daughter brought her in for concern for her being unable to be cared for at home. In the emergency room, the patient had labs, imaging. They tried to ambulate her with a walker and she was unable to do so. She was given a liter of fluids, 650 mg of Tylenol and referred to the hospitalist service for further evaluation. PAST MEDICAL HISTORY: 1. COPD, on 2 L. 2. Obstructive sleep apnea, on CPAP. 3. Morbid obesity. 4. Diabetes. 5. Hypothyroidism. 6. Hypertension. 7. Pulmonary hypertension. 8. History of osteoporosis. 9. Atrial fibrillation, on anticoagulation. 10. Glaucoma. 11. History of gout. 12. History of congestive heart failure with preserved ejection fraction. MEDICATIONS: Medication reconciliation has not been completed yet, the patient is not aware. They are attempting to go through medications at this time. ALLERGIES: PREDNISONE, ADHESIVE TAPE. FAMILY HISTORY: Reviewed and noncontributory. SOCIAL HISTORY: As mentioned, the patient lives alone. She is . She is normally independent of her ADLs. She does get Meals on Wheels and she said she has friends that come in and check on her. Her daughter calls her at 5:30 every evening. She does not drink alcohol. She quit smoking 30 years ago, at that time she had [id number] history. Her daughter and son, Ramila , are healthcare proxies. She states she would like to be a DNR/DNI and her MOLST form will be completed this evening. REVIEW OF SYSTEMS: A 14-point review of systems as mentioned in the HPI. Otherwise, negative. PHYSICAL EXAMINATION GENERAL: No acute distress, morbidly obese. VITAL SIGNS: Temp is 98.9, pulse rate is 100, respiratory rate is 20, oxygen saturation 97% on 2 L, blood pressure is 107/45. HEENT: Head: Normocephalic. Pupils are equal and reactive. Oropharynx: Mucous membranes are moist. NECK: Supple. No lymphadenopathy. RESPIRATORY: Diminished breath sounds. Poor respiratory exam due to the patient's limited mobility and obesity. CARDIAC: Irregularly irregular rate and rhythm. Soft systolic murmur heard throughout. ABDOMEN: Morbidly obese, soft, nondistended. EXTREMITIES: +1 pretibial edema. +1 DPs. NEUROLOGIC: Alert and oriented x3. No gross focal neurologic deficits. LABORATORY DATA: White count 6.1, hemoglobin 10.7, hematocrit 33, platelets 111,000. INR is 2.07. Sodium 137, potassium 4.1, chloride 102, bicarb 27, BUN 28, creatinine 1.14, glucose 108. Magnesium 1.9. CRP is 9. UA is unremarkable. RADIOGRAPHIC DATA: Poor film, suspect increase in interstitial edema. EKG shows atrial fibrillation with a rate of 91. ASSESSMENT AND PLAN: This is an 82-year-old female with past medical history of atrial fibrillation on anticoagulation, diastolic heart failure, and chronic obstructive pulmonary disease on oxygen who presented to the emergency room with weakness and shortness of breath. 1. Weakness and shortness of breath. Assessment: Her weakness may be due to possibly poorly rate controlled atrial fibrillation. Her rate is hovering in the 90s to 100s. It is unclear what medication she is on at this time. It could also be due to a mild congestive heart failure exacerbation triggered by her poorly controlled atrial fibrillation. It also could be secondary to generalized decline with her morbid obesity and comorbidities. Plan: We will check a troponin and trend that. We will repeat an echocardiogram in the morning. We will give her a dose of Lasix now and start her on diltiazem 60 mg p.o. q.6 hours and hold off on beta-blockers as this may be making her chronic obstructive pulmonary disease worse. Also she looks to be anemic compared to her prior studies a year ago, which may be contributing to her weakness. We will check iron studies, B12 and folate. She is on anticoagulation. We will guaiac her stool as well. I put in for a PT evaluation. The patient is likely going to need at least acute rehab. It appears when the patient was admitted back in April of last year, there was discussion of her getting a stress test in December. Would recommend followup if she did get a nuclear stress test. If not, she would benefit from one once her atrial fibrillation is better rate controlled. 2. Elevated BUN and creatinine. Suspect this is related to mild acute decompensated heart failure. We will give her a dose of Lasix and repeat her labs in the morning. 3. Chronic medical problems. Once her med rec is completed, recommend ordering her meds accordingly. I will put her on her CPAP as she did bring that from home for her obstructive sleep apnea. 4. FEN. Heart healthy diet. 5. DVT prophylaxis. The patient scores high risk. She is on anticoagulation. We will resume this as long as her anemia is stable. 6. Code status. The patient states she would like to be a DNR/DNI. MOLST form is completed. TIME SPENT: Greater than 60 minutes were spent doing the history and physical, more than half the time was spent in direct patient contact. [id number]/[facility] #: [id number] AKBAR
[2018-05-01 06:21] LABS: Troponin I 0.04 ng/mL (<0.04)
[2018-05-01 08:15] LABS: Hematocrit 34 % (33-41); Mean Corpuscular HGB Conc 33 g/dL (31-36); Mean Corpuscular Hemoglobin 30 pg (27-31); Mean Corpuscular Volume 93 fL (80-97); Mean Platelet Volume 9.6 fL (7.4-10.4); Platelet Count 119 10^3/uL (150-450); Red Blood Count 3.63 10^6 /uL (3.70-4.87); Red Cell Distribution Width 18 % (10.5-15); White Blood Count 7.6 10^3/uL (3.5-10.8)
[2018-05-01] MEDS: Levothyroxine TAB* 112 MCG TAB PO SCH (08:21)
[2018-05-01 08:27] LABS: BUN/Creatinine Ratio 22.4 (8-20); Calcium 9.1 mg/dL (8.6-10.3); EGFR African American 54.4 (>60); Potassium 3.9 mmol/L (3.5-5.0)
[2018-05-01 08:56] LABS: ABS Basophils 0.1 10^3/ul (0-0.2); ABS Eosinophils 0.2 10^3/ul (0-0.6); ABS Lymphocytes 0.9 10^3/ul (1.0-4.8); ABS Monocytes 0.6 10^3/ul (0-0.8); ABS Neutrophils 5.9 10^3/ul (1.5-7.7)
[2018-05-01 09:01] LABS: Immature Granulocytes 1 % (0-9); Lymphocytes % 15 %; Monocytes % 7 %; Neutrophil % 75 %
[2018-05-01 09:06] LABS: ABS Basophils 0.1 10^3/ul (0-0.2); ABS Eosinophils 0.1 10^3/ul (0-0.6); ABS Neutrophils 5.8 10^3/ul (1.5-7.7)
[2018-05-01 09:08] LABS: ABS Nucleated RBC 0 10^3/ul; Nucleated Red Blood Cells % 0.1
[2018-05-01] MEDS: Apixaban* 5 MG TAB PO SCH ×2 (09:10→20:37)
[2018-05-01] MEDS: Allopurinol TAB* 300 MG PO SCH (09:10)
[2018-05-01] MEDS: Montelukast Sodium TAB* 10 MG PO SCH (09:10)
[2018-05-01] MEDS: Albuterol 2.5 MG/3 ML NEB.SOL* (0.083%) INH PRN (09:18)
[2018-05-01] MEDS ORDERED: Perflutren Lipid Microsphere* 3 ML VIAL ONE (10:03)
[2018-05-01] MEDS ORDERED: NS 0.9% 1000 ML** 1,000 ML IV SCH (11:00)
[2018-05-01 11:24] LABS: Troponin I 0.04 ng/mL (<0.04)
--- NOTE | 2018-05-01 11:28 | ECHO ---
Patient: BECKA BRASWELL [facility] Rec#: [id number] : 1935 Date: 05/01/2018 Age: 82y Height: 163 cm / 64.2 in Weight: 152 kg / 335.0 lbs Sex: F BSA: 2.44 Room#: [facility] Admit Date#: 05/01/2018 Type: Inpatient Referring: Zora Mario Reading: Daniele Virgen MD [employer]orer [employer] Machine: Shi Zuniga RDCS CC: Tri Borges MD Transthoracic Echocardiogram Indication: Shortness of breath BP: 140/66 HR: 84 Rhythm: A-Fib Findings History: Morbid obesity, DM, HTN, CHF, PHTN, moderate-severe TR, hypothyroidism, asthma, EFRA, former smoker. Technical Comments: The study is technically difficult. The study is technically limited due to patient body habitus. Completed at 1100. Left Ventricle: The left ventricular chamber size is normal. Mild concentric left ventricular hypertrophy is observed. Global left ventricular wall motion and contractility are within normal limits. There is normal left ventricular systolic function. The estimated ejection fraction is 55-60%. The assessment of diastolic function is non-diagnostic. Left Atrium: The left atrium is severely dilated. Right Ventricle: The right ventricle is moderately dilated. The right ventricular global systolic function is mildly reduced. Right Atrium: The right atrial cavity size is severely dilated. Aortic Valve: The aortic valve is trileaflet. The aortic valve leaflets are mildly thickened. There is no evidence of aortic regurgitation. There is no evidence of aortic stenosis. Mitral Valve: There is mitral annular calcification. The mitral valve leaflets are mildly thickened. There is trace to mild mitral regurgitation. There is mild mitral stenosis. The peak gradient across the mitral valve is 12 mmHg. The pressure half time of the mitral valve is 101 msec. The mitral valve area, by pressure half time, is calculated at 2.2 cm2. Tricuspid Valve: The tricuspid valve structure is not well visualized. There is trace to mild tricuspid regurgitation. The right ventricular systolic pressure is estimated at 70 mmHg. There is evidence of severe pulmonary hypertension. Pulmonic Valve: The pulmonic valve structure is not well visualized. There is no evidence of pulmonic regurgitation. There is no pulmonic stenosis. Pericardium: There is no significant pericardial effusion. A pericardial fat pad is visualized. Aorta: There is mild dilatation of the ascending aorta. The aortic arch is not well visualized. The aortic root is normal in size. Pulmonary Artery: The main pulmonary artery is not well visualized. Venous: The inferior vena cava is dilated. There is less than 50% respiratory change in the inferior vena cava dimension. Contrast: Definity was used to optimize study. 3 mL of diluted Definity were utilized. Intravenous contrast was used to enhance endocardial border definition. Conclusions There is normal left ventricular systolic function. The estimated ejection fraction is 55-60%. Global left ventricular wall motion and contractility are within normal limits. The left ventricular chamber size is normal. Mild concentric left ventricular hypertrophy is observed. The left atrium is severely dilated. The right ventricle is moderately dilated. The right ventricular global systolic function is mildly reduced. The right atrial cavity size is severely dilated. There is evidence of severe pulmonary hypertension. The right ventricular systolic pressure is estimated at 70 mmHg. Mild mitral stenosis. There is mild dilatation of the ascending aorta. Since the prior echocardiogram completed 04/22/17, there is no significant change, Measurements Name Value Normal Range RVIDd (AP) 2D 2.8 cm (0.9 - 2.6) RVDdMajor (2D) 5.2 cm (2.2 - 4.4) RAd ISD 4CH 7 cm (3.4 - 4.9) RA (A4C)W 6.2 cm (2.9 - 4.6) IVSd (2D) 1.2 cm (0.6 - 1) LVPWd (2D) 1.2 cm (0.6 - 1) LVIDd (2D) 3.7 cm (3.6 - 5.4) LVIDs (2D) 2.2 cm - LV FS (2D) 41 % (25 - 45) Aortic Annulus 1.8 cm (1.4 - 2.6) Ao root diameter (2D) 3 cm (2.1 - 3.5) Ascending Ao 3.8 cm (2.1 - 3.4) LA dimension (AP) 2D 3.9 cm (2.3 - 3.8) LAd ISD 4CH 7.5 cm (2.9 - 5.3) LA ISD 4CH W 5.3 cm (2.5 - 4.5) Name Value Normal Range LA ESV BP (A/L) index 48 ml/m2 - Name Value Normal Range MV E-wave Vmax 1.7 m/sec - MV deceleration time 220 msec - LV septal e' Vmax 0.09 m/sec - LV lateral e' Vmax 0.08 m/sec - LV E:e' septal ratio 18.9 ratio - LV E:e' lateral ratio 21.3 ratio - Name Value Normal Range AV Vmax 1.6 m/sec - AV VTI 32 cm - AV peak gradient 10 mmHg - AV mean gradient 5 mmHg - LVOT diameter 2 cm - LVOT Vmax 1 m/sec - LVOT VTI 22 cm - LVOT peak gradient 4 mmHg - LVOT mean gradient 2 mmHg - KELLEY Vmax 0.6 m/sec - Name Value Normal Range MV Vmax 1.7 m/sec - MV VTI 33.6 cm - MV peak gradient 12 mmHg - MV PHT 101 msec - MVA (PHT) 2.2 cm2 - MVA (continuity VTI) 2.1 cm2 - Name Value Normal Range TR Vmax 3.7 m/sec - TR peak gradient 55 mmHg - RAP 15 mmHg - RVSP 70 mmHg - IVC diameter 2.6 cm - Name Value Normal Range PV Vmax 0.9 m/sec - PV peak gradient 3 mmHg -
[2018-05-01] MEDS: Acetaminophen TAB* 325 MG PO PRN ×2 (11:59→20:37)
--- NOTE | 2018-05-01 12:17 | PN ---
Subjective Date of Service: 05/01/18 Interval History: Ms. Mcghee is feeling a little better today. She is not as SOB as yesterday. She is still feeling very weak. She denies CP, N/V, dizziness. Family is at bedside and they have concerns about her ability to manage at home. She lives alone and has been to rehab twice in the past. She typically does well when she first returns home, but then gradually declines. The patient and her family are concerned about her anxiety levels. She has tried many antidepressants in the past but has not been able to tolerate them. They feel this anxiety affects her ability to ambulate and do other ADLs. No complaints or concerns from nursing. Family History: Unchanged from Admission Social History: Unchanged from Admission Past Medical History: Unchanged from Admission Objective Active Medications: Acetaminophen (Tylenol Tab*) 650 mg PO Q4H PRN FEVER/PAIN Al Hydrox/Mg Hydrox/Simethicone (Maalox Plus*) 30 ml PO Q6H PRN INDIGESTION Albuterol (Ventolin 2.5 Mg/3 Ml Neb.Abby*) 2.5 mg INH Q4H PRN SOB/WHEEZING Allopurinol (Zyloprim Tab*) 300 mg PO QAM JANICE Apixaban (Eliquis*) 5 mg PO BID JANICE Buspirone HCl (Buspar Tab*) 5 mg PO TID JANICE Diltiazem HCl (Cardizem Tab*) 90 mg PO Q6HR JANICE Docusate Sodium (Colace Cap*) 100 mg PO BID PRN CONSTIPATION Sodium Chloride (Ns 0.9% 1000 Ml) 1,000 mls @ 75 mls/hr IV PER RATE JANICE Levothyroxine Sodium (Synthroid Tab*) 112 mcg PO 0600 JANICE Mometasone Furoate (Asmanex 220 Mcg Mdi *) 2 puff INH QPM JANICE Montelukast Sodium (Singulair Tab*) 10 mg PO DAILY JANICE; Protocol Ondansetron HCl (Zofran Inj*) 4 mg IV Q4H PRN NAUSEA/VOMITING Senna (Senokot Tab*) 1 tab PO BID PRN CONSTIPATION Senna (Senokot Tab*) 2 tab PO BEDTIME JANICE Vital Signs - 8 hr 05/01/18 05/01/18 08:13 11:45 Temperature 97.6 F 98.1 F Pulse Rate 87 96 Respiratory 20 18 Rate Blood Pressure 138/52 151/63 (mmHg) O2 Sat by Pulse 100 99 Oximetry Oxygen Devices in Use Now: Nasal Cannula - 2L Appearance: Elderly female laying in bed in NAD Eyes: No Scleral Icterus Ears/Nose/Mouth/Throat: Mucous Membranes Moist Neck: NL Appearance and Movements; NL JVP, Trachea Midline Respiratory: Symmetrical Chest Expansion and Respiratory Effort, Clear to Auscultation Cardiovascular: NL Sounds; No Murmurs; No JVD, - - Irregular Abdominal: NL Sounds; No Tenderness; No Distention Extremities: - - +1 pitting BLE Neurological: Alert and Oriented x 3 Lines/Tubes/Other Access: Clean, Dry and Intact Peripheral IV Nutrition: Taking PO's Result Diagrams: 05/01/18 08:06 05/01/18 08:06 Assess/Plan/Problems-Billing Assessment: Ms. Mcghee is an 82 yo F with PMH of COPD, chronic hypoxic respiratory failure on 2L, EFRA, morbid obesity, dCHF, afib on anticoagulation, HTN, and DM; who presented to the ED with c/o weakness and SOB and was admitted because of the concern for her complex medical history and the etiology of her weakness. - Patient Problems (1) Weakness Code(s): R53.1 - WEAKNESS Comment: - Multifactorial; may be exacerbated by afib with mild tachycardia, CHF exacerbation, anxiety, and general deconditioning - PT/OT, but strongly suspect she will need BERNARDO, and she and her family are agreeable (2) SONIDO (acute kidney injury) Code(s): N17.9 - ACUTE KIDNEY FAILURE, UNSPECIFIED Comment: - Creatinine elevated on admission and did not resolve after 1L IVF in ED - Suspect this is d/t CHF so will give furosemide x1 today and recheck BMP in the AM (3) Acute on chronic diastolic congestive heart failure Code(s): I50.33 - ACUTE ON CHRONIC DIASTOLIC (CONGESTIVE) HEART FAILURE Comment: - Presented with c/o SOB - Mild, not decompensated - CXR shows pulmonary interstitial edema - Echo shows EF 55-60%, no change since 04/2017 - Give furosemide x1 today (4) Anxiety Code(s): F41.9 - ANXIETY DISORDER, UNSPECIFIED Comment: - Affecting her ability to perform ADLs at home d/t fears of falling - Has tried multiple antidepressants in the past and did not tolerate them - Start buspirone (5) Paroxysmal atrial fibrillation Code(s): I48.0 - PAROXYSMAL ATRIAL FIBRILLATION Comment: - With occasional tachycardia - Continue metoprolol, diltiazem, Eliquis (6) COPD (chronic obstructive pulmonary disease) Code(s): J44.9 - CHRONIC OBSTRUCTIVE PULMONARY DISEASE, UNSPECIFIED Comment: - Stable, not in exacerbation - Continue mometasone, albuterol, Singulair (7) Chronic respiratory failure with hypoxia Comment: - Not in exacerbation; at baseline oxygen requirements - Suspect there is also some degree of obesity hypoventilation syndrome - Continue oxygen at home rate of 2L (8) Hypertension Code(s): I10 - ESSENTIAL (PRIMARY) HYPERTENSION Comment: - SBP 130-150s - Continue metoprolol (9) EFRA (obstructive sleep apnea) Code(s): G47.33 - OBSTRUCTIVE SLEEP APNEA (ADULT) (PEDIATRIC) Comment: - CPAP at night (10) Diabetes Code(s): E11.9 - TYPE 2 DIABETES MELLITUS WITHOUT COMPLICATIONS Comment: - Hgb A1c 5.6% - Not on outpatient medication, diet controlled (11) Hypothyroid Code(s): E03.9 - HYPOTHYROIDISM, UNSPECIFIED Comment: - Continue leovthyroxine (12) Morbid obesity Code(s): E66.01 - MORBID (SEVERE) OBESITY DUE TO EXCESS CALORIES Comment: - BMI 57 - Supportive care (13) DVT prophylaxis Comment: - Eliquis (14) DNR (do not resuscitate) Comment: Status and Disposition: Inpatient. Anticipate d/c to [facility] when medically stable. Likely will be here through the weekend. Attending: Mary Wilkins
[2018-05-01] MEDS: busPIRone TAB* 5 MG PO SCH ×2 (13:00→20:37)
[2018-05-01] MEDS: Mometasone 220 MCG MDI INH SCH (20:13)
[2018-05-01] MEDS: Docusate CAP* 100 MG PO PRN (20:37)
[2018-05-01] MEDS: Senna TAB PO SCH (20:37)
[2018-05-01] MEDS: Metoprolol Tartrate TAB* 50 mg PO SCH (20:38)
[2018-05-02] MEDS: Diltiazem TAB* 60 MG PO SCH ×3 (04:49→17:01)
[2018-05-02] MEDS: Acetaminophen TAB* 325 MG PO PRN ×2 (04:50→21:00)
[2018-05-02] MEDS: Levothyroxine TAB* 112 MCG TAB PO SCH (04:51)
[2018-05-02 05:37] LABS: Hematocrit 33 % (33-41); Hemoglobin 10.7 g/dL (12.0-16.0); Mean Corpuscular HGB Conc 33 g/dL (31-36); Mean Corpuscular Hemoglobin 31 pg (27-31); Mean Corpuscular Volume 94 fL (80-97); Mean Platelet Volume 9.3 fL (7.4-10.4); Platelet Count 103 10^3/uL (150-450); Red Blood Count 3.49 10^6 /uL (3.70-4.87); Red Cell Distribution Width 18 % (10.5-15); White Blood Count 7.3 10^3/uL (3.5-10.8)
[2018-05-02 06:00] LABS: BUN/Creatinine Ratio 21.5 (8-20); EGFR African American 59.7 (>60); EGFR Non-African American 49.3 (>60); Potassium 3.9 mmol/L (3.5-5.0)
[2018-05-02 06:13] LABS: Immature Granulocytes 1 % (0-9); Lymphocytes % 7 %; Monocytes % 5 %; Neutrophil % 82 %; Polychromasia 1+; Variant Lymph % 1 % (0-6)
[2018-05-02 06:14] LABS: ABS Neutrophils 6.06 10^3/ul (1.5-7.7)
[2018-05-02] MEDS: Metoprolol Tartrate TAB* 50 mg PO SCH ×2 (09:10→21:00)
[2018-05-02] MEDS: Allopurinol TAB* 300 MG PO SCH (09:12)
[2018-05-02] MEDS: Apixaban* 5 MG TAB PO SCH ×2 (09:13→21:00)
[2018-05-02] MEDS: busPIRone TAB* 5 MG PO SCH ×3 (09:13→21:00)
[2018-05-02] MEDS: Montelukast Sodium TAB* 10 MG PO SCH (09:13)
[2018-05-02] MEDS: Albuterol 2.5 MG/3 ML NEB.SOL* (0.083%) INH PRN (14:44)
[2018-05-02] MEDS ORDERED: Furosemide IV* 10 MG/ML 2 ML VIAL (20 MG) IV ONE (17:10)
--- NOTE | 2018-05-02 17:10 | PN ---
Subjective Date of Service: 05/02/18 Interval History: Ms. Mcghee is feeling better today. She reports an improvement in her anxiety and feels as though the buspirone started yesterday has "leveled" her mood. She denies CP or SOB. C/o a large suprapubic collection of tissue (adipose ) that has been present without change for years, but reports that she feels this affects her ability to ambulate. She denies N/V. C/o poor urine output and constipation. No complaints or concerns from nursing. Nurse was not aware of any decreased urine output. Family History: Unchanged from Admission Social History: Unchanged from Admission Past Medical History: Unchanged from Admission Objective Active Medications: Acetaminophen (Tylenol Tab*) 650 mg PO Q4H PRN FEVER/PAIN Al Hydrox/Mg Hydrox/Simethicone (Maalox Plus*) 30 ml PO Q6H PRN INDIGESTION Albuterol (Ventolin 2.5 Mg/3 Ml Neb.Abby*) 2.5 mg INH Q4H PRN SOB/WHEEZING Allopurinol (Zyloprim Tab*) 300 mg PO QAM JANICE Apixaban (Eliquis*) 5 mg PO BID JANICE Buspirone HCl (Buspar Tab*) 7.5 mg PO TID JANICE Diltiazem HCl (Cardizem Tab*) 90 mg PO Q6HR JANICE Docusate Sodium (Colace Cap*) 100 mg PO BID PRN CONSTIPATION Levothyroxine Sodium (Synthroid Tab*) 112 mcg PO 0600 JANICE Metoprolol Tartrate (Lopressor Tab*) 50 mg PO BID JANICE Mometasone Furoate (Asmanex 220 Mcg Mdi *) 2 puff INH QPM JANICE Montelukast Sodium (Singulair Tab*) 10 mg PO DAILY [facility]; Protocol Ondansetron HCl (Zofran Inj*) 4 mg IV Q4H PRN NAUSEA/VOMITING Senna (Senokot Tab*) 1 tab PO BID PRN CONSTIPATION Senna (Senokot Tab*) 2 tab PO BEDTIME [facility] Vital Signs - 8 hr 05/02/18 05/02/18 05/02/18 11:11 11:46 14:46 Temperature 97.6 F 97.6 F Pulse Rate 75 75 74 Respiratory 20 20 18 Rate Blood Pressure 139/58 139/58 (mmHg) O2 Sat by Pulse 100 100 96 Oximetry 05/02/18 15:14 Temperature 97.6 F Pulse Rate 74 Respiratory 20 Rate Blood Pressure 123/53 (mmHg) O2 Sat by Pulse 98 Oximetry Oxygen Devices in Use Now: Nasal Cannula - 2L Appearance: Elderly female sitting in chair in NAD Eyes: No Scleral Icterus Ears/Nose/Mouth/Throat: Mucous Membranes Moist Neck: NL Appearance and Movements; NL JVP, Trachea Midline Respiratory: Symmetrical Chest Expansion and Respiratory Effort, Clear to Auscultation Cardiovascular: NL Sounds; No Murmurs; No JVD, RRR Abdominal: NL Sounds; No Tenderness; No Distention Extremities: - - Mild nonpitting BLE Neurological: Alert and Oriented x 3 Lines/Tubes/Other Access: Clean, Dry and Intact Peripheral IV Nutrition: Taking PO's Result Diagrams: 05/02/18 05:23 05/02/18 05:23 Assess/Plan/Problems-Billing Assessment: Ms. Mcghee is an 82 yo F with PMH of COPD, chronic hypoxic respiratory failure on 2L, EFRA, morbid obesity, dCHF, afib on anticoagulation, HTN, and DM; who presented to the ED with c/o weakness and SOB and was admitted because of the concern for her complex medical history and the etiology of her weakness. - Patient Problems (1) Weakness Code(s): R53.1 - WEAKNESS Comment: - Multifactorial; may be exacerbated by afib with mild tachycardia, CHF exacerbation, anxiety, and general deconditioning - PT/OT, but strongly suspect she will need BERNARDO, and she and her family are agreeable (2) SONIDO (acute kidney injury) Code(s): N17.9 - ACUTE KIDNEY FAILURE, UNSPECIFIED Comment: - Creatinine elevated on admission and did not resolve after 1L IVF in ED - Suspect this is d/t CHF and volume overload (3) Acute on chronic diastolic congestive heart failure Code(s): I50.33 - ACUTE ON CHRONIC DIASTOLIC (CONGESTIVE) HEART FAILURE Comment: - Presented with c/o SOB - Mild, not decompensated - CXR shows pulmonary interstitial edema - Echo shows EF 55-60%, no change since 04/2017 - Give furosemide x1 today (4) Anxiety Code(s): F41.9 - ANXIETY DISORDER, UNSPECIFIED Comment: - Affecting her ability to perform ADLs at home d/t fears of falling - Has tried multiple antidepressants in the past and did not tolerate them but feels buspirone started yesterday has been effective - Increase buspirone (5) Paroxysmal atrial fibrillation Code(s): I48.0 - PAROXYSMAL ATRIAL FIBRILLATION Comment: - Rate controlled - Continue metoprolol, diltiazem, Eliquis (6) COPD (chronic obstructive pulmonary disease) Code(s): J44.9 - CHRONIC OBSTRUCTIVE PULMONARY DISEASE, UNSPECIFIED Comment: - Stable, not in exacerbation - Continue mometasone, albuterol, Singulair (7) Chronic respiratory failure with hypoxia Comment: - Not in exacerbation; at baseline oxygen requirements - Suspect there is also some degree of obesity hypoventilation syndrome - Continue oxygen at home rate of 2L (8) Hypertension Code(s): I10 - ESSENTIAL (PRIMARY) HYPERTENSION Comment: - SBP 120-130s - Continue metoprolol (9) EFRA (obstructive sleep apnea) Code(s): G47.33 - OBSTRUCTIVE SLEEP APNEA (ADULT) (PEDIATRIC) Comment: - CPAP at night (10) Diabetes Code(s): E11.9 - TYPE 2 DIABETES MELLITUS WITHOUT COMPLICATIONS Comment: - Hgb A1c 5.6% - Not on outpatient medication, diet controlled (11) Hypothyroid Code(s): E03.9 - HYPOTHYROIDISM, UNSPECIFIED Comment: - Continue leovthyroxine (12) Morbid obesity Code(s): E66.01 - MORBID (SEVERE) OBESITY DUE TO EXCESS CALORIES Comment: - BMI 57 - Supportive care (13) DVT prophylaxis Comment: - Eliquis (14) DNR (do not resuscitate) Comment: Status and Disposition: Inpatient. Anticipate d/c to [facility] when medically stable. Here through the weekend as she needs placement. Attending: Mary Wilkins
[2018-05-02] MEDS: Magnesium Hydroxide LIQ* 30 ML UDC PO PRN (17:22)
[2018-05-02] MEDS: Mometasone 220 MCG MDI INH SCH (19:53)
[2018-05-02] MEDS: Senna TAB PO SCH (21:00)
[2018-05-03] MEDS: Diltiazem TAB* 60 MG PO SCH ×4 (00:30→17:06)
[2018-05-03] MEDS: Levothyroxine TAB* 112 MCG TAB PO SCH (05:20)
[2018-05-03 05:51] LABS: Calcium 9.1 mg/dL (8.6-10.3)
[2018-05-03 05:56] LABS: BUN/Creatinine Ratio 20.2 (8-20); EGFR African American 52.8 (>60); EGFR Non-African American 43.6 (>60)
[2018-05-03 06:21] LABS: Potassium 4.2 mmol/L (3.5-5.0)
[2018-05-03] MEDS: Metoprolol Tartrate TAB* 50 mg PO SCH ×2 (08:17→21:19)
[2018-05-03] MEDS: Acetaminophen TAB* 325 MG PO PRN (08:24)
[2018-05-03] MEDS: Magnesium Hydroxide LIQ* 30 ML UDC PO PRN (08:24)
[2018-05-03] MEDS: Apixaban* 5 MG TAB PO SCH ×2 (08:24→21:19)
[2018-05-03] MEDS: Docusate CAP* 100 MG PO PRN (08:24)
[2018-05-03] MEDS: Montelukast Sodium TAB* 10 MG PO SCH (08:24)
[2018-05-03] MEDS: Allopurinol TAB* 300 MG PO SCH (08:25)
[2018-05-03] MEDS: busPIRone TAB* 5 MG PO SCH ×3 (08:25→21:19)
[2018-05-03] MEDS ORDERED: [UNRECOGNIZED DRUG - OTHER] INH PRN (15:11)
--- NOTE | 2018-05-03 15:13 | PN ---
Subjective Date of Service: 05/03/18 Interval History: Ms. Mcghee reports that is slightly better than on arrival though she isnt feeling all that great today. Her primary complaint is of nasal congestion and itchy eyes for which is requesting her home nasal emollient and eye drops. She feels that her breathing is at baseline. She denies chest pain or nausea. Family History: Unchanged from Admission Social History: Unchanged from Admission Past Medical History: Unchanged from Admission Objective Active Medications: Acetaminophen (Tylenol Tab*) 650 mg PO Q4H PRN Al Hydrox/Mg Hydrox/Simethicone (Maalox Plus*) 30 ml PO Q6H PRN Albuterol (Ventolin 2.5 Mg/3 Ml Neb.Abby*) 2.5 mg INH Q4H PRN Allopurinol (Zyloprim Tab*) 300 mg PO QAM JANICE Apixaban (Eliquis*) 5 mg PO BID JANICE Buspirone HCl (Buspar Tab*) 7.5 mg PO TID JANICE Diltiazem HCl (Cardizem Tab*) 90 mg PO Q6HR JANICE Docusate Sodium (Colace Cap*) 100 mg PO BID PRN Levothyroxine Sodium (Synthroid Tab*) 112 mcg PO 0600 JANICE Magnesium Hydroxide (Milk Of Magnesia Liq*) 30 ml PO Q6H PRN Metoprolol Tartrate (Lopressor Tab*) 50 mg PO BID JANICE Mometasone Furoate (Asmanex 220 Mcg Mdi *) 2 puff INH QPM JANICE Montelukast Sodium (Singulair Tab*) 10 mg PO DAILY JANICE; Protocol Ondansetron HCl (Zofran Inj*) 4 mg IV Q4H PRN Senna (Senokot Tab*) 1 tab PO BID PRN Senna (Senokot Tab*) 2 tab PO BEDTIME JANICE Oxygen Devices in Use Now: Nasal Cannula Appearance: Female sitting up in chair in NAD Eyes: No Scleral Icterus Neck: NL Appearance and Movements; NL JVP Respiratory: Symmetrical Chest Expansion and Respiratory Effort, Clear to Auscultation Cardiovascular: NL Sounds; No Murmurs; No JVD, - - B LE edema Abdominal: NL Sounds; No Tenderness; No Distention Skin: No Rash or Ulcers Neurological: Alert and Oriented x 3, NL Muscle Strength and Tone Result Diagrams: 05/02/18 05:23 05/03/18 05:35 Assess/Plan/Problems-Billing Assessment: Ms. Mcghee is an 82 yo F with PMH of COPD, chronic hypoxic respiratory failure on 2L, EFRA, morbid obesity, dCHF, afib on anticoagulation, HTN, and DM; who presented to the ED with c/o weakness and SOB and was admitted because of the concern for her complex medical history and workup for the etiology of her weakness. - Patient Problems (1) Acute on chronic diastolic congestive heart failure Comment: - Presented with c/o SOB, minimal improvement thus far - Mild, not decompensated - CXR shows pulmonary interstitial edema - Echo shows EF 55-60%, no change since 04/2017 - Plan for repeat furosemide today (2) Weakness Comment: - Multifactorial; may be exacerbated by afib with mild tachycardia, CHF exacerbation, anxiety, and general deconditioning - PT/OT, but strongly suspect she will need [facility], and she and her family are agreeable (3) SONIDO (acute kidney injury) Comment: - Essentially unchanged, Cr 1.19 - Creatinine elevated on admission and did not resolve after 1L IVF in ED - Suspect this is d/t CHF and volume overload (4) Anxiety Comment: - Affecting her ability to perform ADLs at home d/t fears of falling - Has tried multiple antidepressants in the past and did not tolerate them but feels buspirone started yesterday has been effective - Continue buspirone (5) COPD (chronic obstructive pulmonary disease) Comment: - Stable, not in exacerbation - Continue mometasone, albuterol, Singulair (6) Chronic respiratory failure with hypoxia Comment: - Not in exacerbation; at baseline oxygen requirements - Suspect there is also some degree of obesity hypoventilation syndrome - Continue oxygen at home rate of 2L (7) Paroxysmal atrial fibrillation Comment: - Rate controlled - Continue metoprolol, diltiazem, Eliquis (8) Diabetes Comment: - Hgb A1c 5.6% - Not on outpatient medication, diet controlled (9) Glaucoma Comment: - Continue home medications (10) Gout Comment: - Continue allopurinol (11) Hypertension Comment: - SBP 120-130s - Continue metoprolol (12) Hypothyroid Comment: - Continue leovthyroxine (13) Morbid obesity Comment: - BMI 57 - Supportive care (14) EFRA (obstructive sleep apnea) Comment: - CPAP at night (15) DVT prophylaxis Comment: - Eliquis (16) DNR (do not resuscitate) Comment: Status and Disposition: Inpatient. Anticipate d/c to [facility] when medically stable. Here through the weekend as she needs placement.
[2018-05-03] MEDS ORDERED: Furosemide IV* 10 MG/ML VIAL (40 MG) IV ONE (15:33)
[2018-05-03] MEDS: PTO:Brimonidine 0.2% 5 ML BTL BOTH EYES SCH ×2 (16:03→21:19)
[2018-05-03] MEDS: Mometasone 220 MCG MDI INH SCH (19:17)
[2018-05-03] MEDS: Senna TAB PO SCH (21:19)
[2018-05-03] MEDS: PTO:Latanoprost 0.005%* 2.5 ml BTL BOTH EYES SCH (21:20)
[2018-05-04] MEDS: Diltiazem TAB* 60 MG PO SCH ×3 (00:04→12:55)
[2018-05-04] MEDS: Levothyroxine TAB* 112 MCG TAB PO SCH (05:58)
--- NOTE | 2018-05-04 08:17 | PN ---
Subjective Date of Service: 05/04/18 Interval History: Ms. Mcghee reports feeling "off" today but it is difficult for her to characterize it further. She notes that she feels like, "I'm about to come down with something but I'm not actually sick." She reports her breathing is at baseline. She denies chest pain. She denies nausea or abdominal pain. Family History: Unchanged from Admission Social History: Unchanged from Admission Past Medical History: Unchanged from Admission Objective Active Medications: Acetaminophen (Tylenol Tab*) 650 mg PO Q4H PRN Al Hydrox/Mg Hydrox/Simethicone (Maalox Plus*) 30 ml PO Q6H PRN Albuterol (Ventolin 2.5 Mg/3 Ml Neb.Abby*) 2.5 mg INH Q4H PRN Allopurinol (Zyloprim Tab*) 300 mg PO QAM JANICE Apixaban (Eliquis*) 5 mg PO BID JANICE Brimonidine Tartrate (Alphagan 0.2%) 1 drop BOTH EYES BID JANICE Buspirone HCl (Buspar Tab*) 7.5 mg PO TID JANICE Diltiazem HCl (Cardizem Tab*) 90 mg PO Q6HR JANICE Docusate Sodium (Colace Cap*) 100 mg PO BID PRN Latanoprost (Xalatan 0.005%*) 1 drop BOTH EYES BEDTIME JANICE Levothyroxine Sodium (Synthroid Tab*) 112 mcg PO 0600 JANICE Magnesium Hydroxide (Milk Of Magnesia Liq*) 30 ml PO Q6H PRN Metoprolol Tartrate (Lopressor Tab*) 50 mg PO BID JANICE Mometasone Furoate (Asmanex 220 Mcg Mdi *) 2 puff INH QPM JANICE Montelukast Sodium (Singulair Tab*) 10 mg PO DAILY [facility]; Protocol Pto:Ponaris Nasal (Emollient) 1 admin INH Q4H PRN Ondansetron HCl (Zofran Inj*) 4 mg IV Q4H PRN Senna (Senokot Tab*) 1 tab PO BID PRN Senna (Senokot Tab*) 2 tab PO BEDTIME JANICE Torsemide (Demadex*) 10 mg PO DAILY JANICE Vital Signs: Temp Pulse Resp BP Pulse Ox 97.3 F 57 16 117/50 100 05/04/18 07:27 05/04/18 07:27 05/04/18 07:27 05/04/18 07:27 05/04/18 07:27 Oxygen Devices in Use Now: Nasal Cannula Appearance: Female sitting up in chair in NAD Eyes: No Scleral Icterus Ears/Nose/Mouth/Throat: Mucous Membranes Moist Neck: Trachea Midline Respiratory: Symmetrical Chest Expansion and Respiratory Effort, Clear to Auscultation Cardiovascular: NL Sounds; No Murmurs; No JVD, No Edema Abdominal: NL Sounds; No Tenderness; No Distention Extremities: No Edema Skin: No Rash or Ulcers Neurological: Alert and Oriented x 3, NL Muscle Strength and Tone Nutrition: Taking PO's Result Diagrams: 05/02/18 05:23 05/03/18 05:35 Assess/Plan/Problems-Billing Assessment: Ms. Mcghee is an 82 yo F with PMH of COPD, chronic hypoxic respiratory failure on 2L, EFRA, morbid obesity, dCHF, afib on anticoagulation, HTN, and DM; who presented to the ED with c/o weakness and SOB and was admitted because of the concern for her complex medical history and workup for the etiology of her weakness. - Patient Problems (1) Acute on chronic diastolic congestive heart failure Comment: - Presented with c/o SOB, patient feels that she is essentially at baseline - Mild, not decompensated - CXR shows pulmonary interstitial edema - Echo shows EF 55-60%, no change since 04/2017 - No further furosemide given today given relative hypotension (2) Weakness Comment: - Multifactorial; may be exacerbated by afib with mild tachycardia, CHF exacerbation, anxiety, and general deconditioning - PT/OT, but strongly suspect she will need [facility], and she and her family are agreeable (3) SONIDO (acute kidney injury) Comment: - Essentially unchanged, Cr 1.19 - Creatinine elevated on admission and did not resolve after 1L IVF in ED - Suspect this is d/t CHF and volume overload (4) Anxiety Comment: - Affecting her ability to perform ADLs at home d/t fears of falling - Has tried multiple antidepressants in the past and did not tolerate them but feels buspirone started yesterday has been effective - Patient feeling a little "out of it" today, plan to decrease buspar (started this admission) back down to BID dosing (5) COPD (chronic obstructive pulmonary disease) Comment: - Stable, not in exacerbation - Continue mometasone, albuterol, Singulair (6) Chronic respiratory failure with hypoxia Comment: - Not in exacerbation; at baseline oxygen requirements - Suspect there is also some degree of obesity hypoventilation syndrome - Continue oxygen at home rate of 2L (7) Paroxysmal atrial fibrillation Comment: - Rate controlled - Continue eliquis. Metoprolol stopped given concomitant COPD, switched to diltiazem. Had initially been started on higher dose but am now decreasing due to relative hypotension. (8) Diabetes Comment: - Hgb A1c 5.6% - Not on outpatient medication, diet controlled (9) Glaucoma Comment: - Continue home medications (10) Gout Comment: - Continue allopurinol (11) Hypertension Comment: - SBP 90s today - Metoprolol stopped, diltiazem decreased (12) Hypothyroid Comment: - Continue leovthyroxine (13) Morbid obesity Comment: - BMI 57 - Supportive care (14) EFRA (obstructive sleep apnea) Comment: - CPAP at night (15) Anemia Comment: - Hgb stable at ~ 11, will recheck in AM - Stool occult blood positive - Would recommend consideration for outpatient workup as wanted per patient and family. (16) DVT prophylaxis Comment: - Eliquis (17) DNR (do not resuscitate) Comment: Status and Disposition: Inpatient. Anticipate d/c to [facility] when medically stable. Here through the weekend as she needs placement.
[2018-05-04] MEDS: Montelukast Sodium TAB* 10 MG PO SCH (08:41)
[2018-05-04] MEDS: Metoprolol Tartrate TAB* 50 mg PO SCH (08:41)
[2018-05-04] MEDS: Torsemide TAB* 20 MG PO SCH (08:41)
[2018-05-04] MEDS: Allopurinol TAB* 300 MG PO SCH (08:41)
[2018-05-04] MEDS: busPIRone TAB* 5 MG PO SCH ×2 (08:41→20:04)
[2018-05-04] MEDS: Docusate CAP* 100 MG PO PRN (08:41)
[2018-05-04] MEDS: Acetaminophen TAB* 325 MG PO PRN ×2 (08:41→20:05)
[2018-05-04] MEDS: Apixaban* 5 MG TAB PO SCH ×2 (08:41→20:05)
[2018-05-04] MEDS: PTO:Brimonidine 0.2% 5 ML BTL BOTH EYES SCH ×2 (08:42→20:08)
[2018-05-04] MEDS: Diltiazem TAB* 30 MG PO SCH (17:15)
[2018-05-04] MEDS: Senna TAB PO SCH (20:05)
[2018-05-04] MEDS: PTO:Latanoprost 0.005%* 2.5 ml BTL BOTH EYES SCH (20:08)
[2018-05-04] MEDS: Mometasone 220 MCG MDI INH SCH (20:39)
[2018-05-04] MEDS ORDERED: Latanoprost 0.005%* 2.5 ml BTL BOTH EYES SCH (22:15)
[2018-05-05] MEDS: Diltiazem TAB* 30 MG PO SCH ×3 (00:04→12:09)
[2018-05-05] MEDS: Acetaminophen TAB* 325 MG PO PRN ×2 (02:44→12:10)
[2018-05-05 05:50] LABS: Hematocrit 35 % (33-41); Hemoglobin 11.2 g/dL (12.0-16.0); Mean Corpuscular HGB Conc 33 g/dL (31-36); Mean Corpuscular Hemoglobin 31 pg (27-31); Mean Corpuscular Volume 94 fL (80-97); Mean Platelet Volume 9.8 fL (7.4-10.4); Platelet Count 141 10^3/uL (150-450); Red Blood Count 3.68 10^6 /uL (3.70-4.87); Red Cell Distribution Width 18 % (10.5-15); White Blood Count 8.7 10^3/uL (3.5-10.8)
[2018-05-05 06:06] LABS: BUN/Creatinine Ratio 16.8 (8-20); Calcium 8.9 mg/dL (8.6-10.3); EGFR African American 34.3 (>60); EGFR Non-African American 28.3 (>60); Potassium 4.3 mmol/L (3.5-5.0)
[2018-05-05] MEDS: Levothyroxine TAB* 112 MCG TAB PO SCH (06:09)
[2018-05-05 06:19] LABS: Immature Granulocytes 1 % (0-9); Lymphocytes % 8 %; Metamyelocytes % 1 % (0-2); Microcytosis 2+; Monocytes % 6 %; Neutrophil % 81 %; Variant Lymph % 2 % (0-6)
[2018-05-05 06:20] LABS: Polychromasia 1+
[2018-05-05 06:23] LABS: ABS Neutrophils 7.1 10^3/ul (1.5-7.7)
[2018-05-05 06:24] LABS: ABS Basophils 0.17 10^3/ul (0-0.2)
[2018-05-05 06:25] LABS: ABS Basophils 0 10^3/ul (0-0.2); ABS Eosinophils 0.1 10^3/ul (0-0.6); ABS Lymphocytes 0.6 10^3/ul (1.0-4.8); ABS Monocytes 0.6 10^3/ul (0-0.8); ABS Neutrophils 7.3 10^3/ul (1.5-7.7); ABS Nucleated RBC 0 10^3/ul
[2018-05-05] MEDS: Torsemide TAB* 20 MG PO SCH (08:52)
[2018-05-05] MEDS: Apixaban* 5 MG TAB PO SCH (08:53)
[2018-05-05] MEDS: Montelukast Sodium TAB* 10 MG PO SCH (08:53)
[2018-05-05] MEDS: Allopurinol TAB* 300 MG PO SCH (08:53)
[2018-05-05] MEDS: PTO:Brimonidine 0.2% 5 ML BTL BOTH EYES SCH (08:54)
[2018-05-05] MEDS: busPIRone TAB* 5 MG PO SCH (08:56)
--- NOTE | 2018-05-05 12:55 | DS ---
AMENDED REPORT NOW INCLUDES DESIGNATED COSIGNER - ESIGNED BEFORE ADJUSTMETN CC: Dr. Tri Borges* DATE OF ADMISSION: 05/01/2018. DATE OF DISCHARGE: 05/05/2018. PRIMARY CARE PHYSICIAN: Dr. Tri Borges. ATTENDING PHYSICIAN: Dr. Staci Butterfield * (dictated by Flo Finnegan NP). HOSPITAL COURSE: This is an 82-year-old female patient with a history of COPD with oxygen dependence, paroxysmal A-fib, and morbid obesity who presented to the emergency department for worsening weakness. The patient lives alone and is having reports of her legs giving out. She has had multiple falls when she was trying to transfer; however, she did not lose consciousness. She did have some complaint of chest pain also at that time and for these reasons, the patient was admitted for further evaluation. The patient had an echocardiogram which showed an EF of 55 go 60 percent, global LV function within normal limits. There was some mild concentric left ventricular hypertrophy. She does have severe dilatation of the left atrium, moderate dilatation of the right ventricle. Right ventricular global systolic function was mildly reduced. The right atrial cavity was severely dilated and there is evidence of severe pulmonary hypertension. However, since her echo of 04/22/2017, there were no significant or acute changes. The patient was mildly volume overloaded; however , she did not have any acute decompensation of her heart failure. She had received a couple of doses of Lasix, but was having some hypotensive but does appear euvolemic. For her weakness, it is likely secondary to her deconditioning. As such, she had physical therapy evaluation who determined that the patient did have skilled rehab needs. The patient also had some acute urinary retention over the last 24 hours. Because of her body habitus, we were not able to accurately bladder scan her. She did initially have a straight catheterization where she was retaining 650 ml of urine. A Gonzalez catheter was then placed which is draining clear urine. The patient was accepted at [facility] for subacute rehab. DISCHARGE DIAGNOSES: 1. General weakness, likely secondary to multiple comorbid conditions and general deconditioning. 2. Acute on chronic diastolic congestive heart failure, now stable. 3. Acute kidney injury and CKD secondary to diuresis and acute urinary retention. 4. History of anxiety. 5. COPD, not in exacerbation, on oxygen. 6. History of paroxysmal A-fib which is rate controlled. 7. Diabetes, stable. 8. Glaucoma, stable. 9. Gout, stable. 10. Hypertension with intermittent hypotension. 11. History of hypothyroid, stable. 12. Morbid obesity with BMI of 57. 13. Obstructive sleep apnea on CPAP. 14. Anemia of chronic disease, stable. DISCHARGE MEDICATIONS: 1. Torsemide 10 mg p.o. daily. 2. Apixaban 5 mg p.o. b.i.d. 3. Levothyroxine 112 mcg p.o. daily. 4. Colace 100 mg p.o. b.i.d. prn. 5. Xalatan eye drops one drop both eyes at bedtime daily. 6. Milk of Magnesia 30 ml q.6 as needed. 7. Asmanex 220 mcg two puffs inhaled in the evening. 8. Singulair 10 mg p.o. daily. 9. Cardizem 120 mg p.o. daily. Changed medication: Metoprolol discontinued. New medication: BuSpar 7.5 mg p.o. b.i.d. REVIEW OF SYSTEMS THE DAY OF DISCHARGE: The patient is complaining of general weakness and fatigue, some general malaise, although otherwise denies any fever , fatigue or chills. No shortness of breath, no chest pain, no abdominal pain, no nausea, no vomiting, and no further constitutional complaints. PHYSICAL EXAMINATION: General: The patient is awake, alert, in no acute distress. Vital Signs: Blood pressure 118/52, heart rate 53, O2 saturation 98 percent on 2 liters, respiratory rate 20 , temperature 97.5. HEENT: The patient is atraumatic, normocephalic. PERRLA. Nonicteric sclerae. Oral mucosa is moist. Tongue is midline. Dentition is poor. Neck: Supple, nontender. No JVD noted. No carotid bruit auscultated. Cardiovascular: S1, S2 present. Rate is slightly bradycardic. Rhythm is regular. Lungs: Clear at the apices bilaterally. Diminished at the bases with no appreciable wheezing, rhonchi or rales. Abdomen: Soft, nontender, nondistended. Positive bowel sounds noted. Abdomen is obese. : She has a Gonzalez catheter draining clear yellow urine. Musculoskeletal: There is no clubbing, no cyanosis, no edema. She has +2 distal pulses palpable. Neurologic : Grossly intact. No focal deficits. Psychiatric: She is cooperative and appropriate. LABORATORY DATA: WBC 8.7, RBC 3.68, hemoglobin 11.2, hematocrit 35, platelets 141; sodium 131, potassium 4.2, chloride 99, CO2 23, BUN 29, creatinine 1.73, GFR 28.3, glucose 136, calcium 8.9. IMAGING STUDIES: 1. Echocardiogram as above. 2. Chest x-ray dated 04/30/2018 showed cardiomegaly with pulmonary interstitial edema. DISPOSITION: The patient will be discharged to [facility] for subacute rehab. ACTIVITY: Progress activity as tolerated. DIET: Diabetic, hearty healthy as tolerated. FOLLOW-UP: The patient should follow-up with her primary care provider Dr. Tri Borges after discharge from rehab. TIME SPENT: Approximately 35 minutes evaluating the patient and determining discharge plan of care. FLO FINNEGAN NP [id number]/[facility] #: [id number] AKBAR
[2018-05-05 13:11] VITALS: BP 134/46
[2018-05-05] MEDS: Albuterol 2.5 MG/3 ML NEB.SOL* (0.083%) INH PRN (13:46)
[2018-05-06] MEDS ORDERED: Diltiazem CD CAP* 120 MG PO SCH (09:00)
--- NOTE | 2018-05-09 00:06 | DS ---
DISCHARGE SUMMARY: ADDENDUM: DISPOSITION: The patient was discharged in stable condition by ambulance transport to [facility] for subacute rehab. FLO PLATT NP [id number]/[facility] #: [id number] [facility] HOSPITALNohemi
== END 2018-05-05 14:28 | DRG 291 ==
LOC: ED 16:26 → MEDTELE 05-01 01:15
PROVIDERS: ADMIT Pediatrics; ATTEND Internal Medicine
PROC: 0T9B70Z Drainage of Bladder with Drainage Device, Via Natural or Artificial Opening (ICD-10-PCS; principal; 2018-05-04)
DX: I13.0 Hypertensive heart and chronic kidney disease with heart failure and stage 1 through stage 4 chronic kidney disease, or unspecified chronic kidney disease (principal); I50.33 Acute on chronic diastolic (congestive) heart failure; Z68.43 Body mass index [BMI] 50.0-59.9, adult; J96.11 Chronic respiratory failure with hypoxia; N17.9 Acute kidney failure, unspecified; E66.01 Morbid (severe) obesity due to excess calories; E78.00 Pure hypercholesterolemia, unspecified; G47.33 Obstructive sleep apnea (adult) (pediatric); E03.9 Hypothyroidism, unspecified; M10.9 Gout, unspecified; M81.0 Age-related osteoporosis without current pathological fracture; I27.20 Pulmonary hypertension, unspecified; F41.9 Anxiety disorder, unspecified; D63.8 Anemia in other chronic diseases classified elsewhere; E11.22 Type 2 diabetes mellitus with diabetic chronic kidney disease; J44.9 Chronic obstructive pulmonary disease, unspecified; N18.9 Chronic kidney disease, unspecified; Z66 Do not resuscitate; I48.0 Paroxysmal atrial fibrillation; M19.90 Unspecified osteoarthritis, unspecified site; E11.39 Type 2 diabetes mellitus with other diabetic ophthalmic complication; H42 Glaucoma in diseases classified elsewhere; R33.9 Retention of urine, unspecified; I95.9 Hypotension, unspecified; Z90.49 Acquired absence of other specified parts of digestive tract; Z80.3 Family history of malignant neoplasm of breast; Z82.3 Family history of stroke; Z88.8 Allergy status to other drugs, medicaments and biological substances; Z88.0 Allergy status to penicillin; Z87.891 Personal history of nicotine dependence; Z91.81 History of falling; Z99.81 Dependence on supplemental oxygen; Z79.01 Long term (current) use of anticoagulants
CPT/HCPCS: 36415; 71045; 80048; 80053; 81003; 82272; 82550; 82607; 82728; 82746; 83036; 83540; 83550; 83605; 83690; 83735; 83880; 84443; 84484; 85025; 85060; 85610; 85730; 86140; 93005; 93306; 94640; 99284; A9270-GY; C8929; G8978-GP-CK; G8979-GP-CI; J1940